=== PATIENT | female | born 1955 | race Caucasian/White ===

== ENCOUNTER 2016-07-03 17:52 | Observation (INO) | payer OTHER ==
[~2016-07-03] VITALS: Ht 157.5 cm; Wt 65.8 kg
[~2016-07-03 17:52] MED LIST: AMLO5TAB2 PO; ASP81TEC PO; ATR20T PO; CTRZ10T PO; HYDR-3876 PO; HYOS0.1217 PO; METO-333 PO; NITR0.3T6 SL; NITR100C44 PO; PHEN200T27 PO; TICA90TA PO; TORADOL
[2016-07-03] MEDS ORDERED: RX-NITROGLYCERIN 0.4 MG TAB BTL 25'S SL PRN (18:00)
[2016-07-03] MEDS ORDERED: ASPIRIN 81 MG CHEW (CHILDREN'S ASA) PO ONE (18:00)
[2016-07-03] MEDS ORDERED: morphine INJ 10 MG/ML 1ML (SYR OR VIAL) IVP STA ×2 (18:07→19:03)
[2016-07-03 18:21] LABS: BASOPHILS % (AUTO) 0 % (0-10); EOSINOPHILS # (AUTO) 0.2 10^3/uL (0.0-0.3); EOSINOPHILS % (AUTO) 2 % (0-10); LYMPHOCYTES # (AUTO) 1.8 X 10^3 (1.0-4.0); LYMPHOCYTES % (AUTO) 13 % (12-44); MEAN CORPUSCULAR HEMOGLOBIN 29 PG (25-34); MEAN CORPUSCULAR HGB CONC 34 G/DL (32-36); MEAN CORPUSCULAR VOLUME 84 FL (80-99); MEAN PLATELET VOLUME 10.8 FL (7.4-10.4); MONOCYTES # (AUTO) 0.6 X 10^3 (0.0-1.0); MONOCYTES % (AUTO) 5 % (0-12); NEUTROPHILS # (AUTO) 10.5 X 10^3 (1.8-7.8); NEUTROPHILS % (AUTO) 80 % (42-75); PLATELET COUNT 268 10^3/uL (130-400); RED CELL DISTRIBUTION WIDTH 14.3 % (10.0-14.5); WHITE BLOOD COUNT 13.1 10^3/uL (4.3-11.0)
[2016-07-03 18:33] LABS: PROTHROMBIN TIME PATIENT 12.5 SEC (12.2-14.7)
--- NOTE | 2016-07-03 18:40 | ED Chest Pain ---
General Stated Complaint: CP Source: patient History of Present Illness Time seen by provider: 17:55 Initial Comments PT ARRIVES VIA POV FROM HOME PT STATES SHE BEGAN HAVING A TYPICAL MIGRAINE AROUND 1230 TODAY--TOOK 2 EXCEDRIN MIGRAINE AND 2 TORADOL AROUND 1430 TODAY AND HEADACHE IS COMPLETELY GONE NOW SHORTLY BEFORE SHE TOOK THE MEDICATIONS, SHE BEGAN HAVING CHEST PAIN AND IT CONTINUES, STARTED IN MID-CHEST AND IS STARTING TO SPREAD ACROSS ENTIRE CHEST RATES PAIN 8/10 + NAUSEA, NO VOMITING + SWEATS SLIGHT SHORTNESS OF BREATH NO SWELLING IN LEGS/ FEET OR PAIN IN [place] HAS HAD A CARDIAC CATH AND 1 STENT/NO [place] BY DR. COLEMAN--STATES THIS PAIN IS THE SAME PAIN SHE WAS HAVING BEFORE HER STENT. PT STATES FOR THE LAST COUPLE OF DAYS SHE HAS HAD "HEART PAIN" A COUPLE OF TIMES , BUT WENT AWAY AFTER A FEW MINUTES, ALSO HAVING SOME "INDIGESTION" WITH EATING STATES SHE USED TO HAVE NTG AT HOME, BUT HAS NOT HAD ANY IN YEARS WAS SEEING DR. MARCUM, AFTER DR. COLEMAN , AND HAD A ? STRESS ECHO? A COUPLE OF YEARS AGO IN [place] SINCE THEN, SHE HAS TRANSFERRED CARE TO DR. BOWENS AT [facility]--HAS ONLY SEEN HIM TWICE PT DID ALOT OF WALKING TODAY--HAS BEEN TO [facility] IN [place] ALL DAY PCP: DR. ALEXIS Allergies and Home Medications Allergies Coded Allergies: Penicillins (Verified Allergy, Unknown, 08/25/06) ciprofloxacin (Verified Allergy, Unknown, 08/25/06) Home Medications Amlodipine Besylate 5 Mg Tablet, 5 MG PO DAILY, (Reported) Atorvastatin 20 Mg Tablet, 20 MG PO HS, (Reported) Hydrocodone/Acetaminophen 1 Each Tablet, 1-2 EACH PO Q4H, #30 Prescribed by: JOSE ACE on 05/14/14 1422 Hyoscyamine Sulfate 0.125 Mg/Tab Tab.rapdis, 1-2 EACH PO Q4HR, #30 Prescribed by: JOSE ACE on 05/14/14 1421 Nitrofurantoin/Nitrofuran Mac 100 Mg Capsule, 100 MG PO BID, #14 Prescribed by: JOSE ACE on 05/14/14 1421 Phenazopyridine Hcl 200 Mg Tablet, 1 EACH PO TID, #21 Prescribed by: JOSE ACE on 05/14/14 1421 Review of Systems Constitutional: see HPI, diaphoresis EENTM: No Symptoms Reported Respiratory: See HPI, Shortness of Air Cardiovascular: See HPI, Chest Pain, Denies Edema, Denies Lightheadedness, Denies Palpitations, Denies Syncope Gastrointestinal: See HPI, Denies Abdominal Pain, Nausea, Denies Vomiting Genitourinary: No Symptoms Reported Musculoskeletal: no symptoms reported Skin: no symptoms reported Psychiatric/Neurological: No Symptoms Reported Endocrine: No Symptoms Reported Hematologic/Lymphatic: No Symptoms Reported Past Urgjcuh-Fukvjm-Yxdynb Hx Patient Social History Alcohol Use: Denies Use Recreational Drug Use: No Smoking Status: Never a Smoker 2nd Hand Smoke Exposure: Yes Recent Foreign Travel: No Contact w/Someone Who Travel: No Surgeries HX Surgeries: Yes ( X 3, KIDNEY STONE BASKET RETRIEVAL X 2; TOE SURGERY X 2; SINUS SURGERY) Surgeries: Cardiac, Section, Coronary Stent, Orthopedic, Renal Respiratory Hx Respiratory Disorders: No Cardiovascular Hx Cardiac Disorders: Yes Cardiac Disorders: Coronary Artery Disease Neurological Hx Neurological Disorders: Yes Neurological Disorders: Headaches /Migraines 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 System Hx 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 Disorders: 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 Genitourinary Hx Genitourinary Disorders: Yes Genitourinary Disorders: Kidney Stones Gastrointestinal Hx Gastrointestinal Disorders: No Musculoskeletal Hx Musculoskeletal Disorders: Yes (TOE SURGERY) Endocrine Hx Endocrine Disorders: No HEENT HX ENT Disorders: Yes (SINUS SURGERY) Cancer Hx Cancer: No Psychosocial Hx Psychiatric Problems: No Integumentary HX Skin/Integumentary Disorder: No Blood Transfusions Hx Blood Disorders: No Physical Exam Vital Signs Vital Sign - Last 12Hours 07/03/16 17:52 Temp 97.3 Pulse 82 Resp 16 B/P (MAP) 162/90 Pulse Ox 98 Capillary Refill : General Appearance: No Apparent Distress, WD/WN, Anxious HEENT: PERRL/EOMI Neck: Full Range of Motion, Normal Inspection, Non Tender, Supple, No Carotid Bruit, No JVD Respiratory: Chest Non Tender, Normal Breath Sounds, No Accessory Muscle Use, No Respiratory Distress Cardiovascular: Regular Rate, Rhythm, No Edema, No Gallop, No JVD, No Murmur, Normal Peripheral Pulses Gastrointestinal: Normal Bowel Sounds, No Organomegaly, No Pulsatile Mass, Non Tender, Soft Extremity: Normal Capillary Refill, Normal Inspection, Normal Range of Motion, Non Tender, No Calf Tenderness, No Pedal Edema Neurologic/Psychiatric: Alert, Oriented x3, No Motor/Sensory Deficits, claims 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 II- XII Norm as Tested Skin: Normal Color, Warm/Dry, No Rash Progress/Results/Core Measures Results/Orders Lab Results Laboratory Tests Test 07/03/16 18:10 Range/Units White Blood Count 13.1 H 4.3-11.0 10^3/uL Red Blood Count 5.20 4.35-5.85 10^6/uL Hemoglobin 14.8 11.5-16.0 G/DL Hematocrit 44 35-52 % Mean Corpuscular Volume 84 80-99 FL Mean Corpuscular Hemoglobin 29 25-34 PG Mean Corpuscular Hemoglobin Concent 34 32-36 G/DL Red Cell Distribution Width 14.3 10.0-14.5 % Platelet Count 268 130-400 10^3/uL Mean Platelet Volume 10.8 H 7.4-10.4 FL Neutrophils (%) (Auto) 80 H 42-75 % Lymphocytes (%) (Auto) 13 12-44 % Monocytes (%) (Auto) 5 0-12 % Eosinophils (%) (Auto) 2 0-10 % Basophils (%) (Auto) 0 0-10 % Neutrophils # (Auto) 10.5 H 1.8-7.8 X 10^3 Lymphocytes # (Auto) 1.8 1.0-4.0 X 10^3 Monocytes # (Auto) 0.6 0.0-1.0 X 10^3 Eosinophils # (Auto) 0.2 0.0-0.3 10^3/uL Basophils # (Auto) 0.0 0.0-0.1 10^3/uL Prothrombin Time 12.5 12.2-14.7 SEC INR Comment 1.0 0.8-1.4 Activated Partial Thromboplast Time 24 24-35 SEC Sodium Level 137 135-145 MMOL/L Potassium Level 4.0 3.6-5.0 MMOL/L Chloride Level 101 98-107 MMOL/L Carbon Dioxide Level 21 21-32 MMOL/L Anion Gap 15 H 5-14 MMOL/L Blood Urea Nitrogen 13 7-18 MG/DL Creatinine 0.78 0.60-1.30 MG/DL Estimat Glomerular Filtration Rate > 60 BUN/Creatinine Ratio 17 Glucose Level 160 H 70-105 MG/DL Calcium Level 9.6 8.5-10.1 MG/DL Magnesium Level 2.2 1.8-2.4 MG/DL Total Bilirubin 0.4 0.1-1.0 MG/DL Aspartate Amino Transf (AST/SGOT) 31 5-34 U/L Alanine Aminotransferase (ALT/SGPT) 24 0-55 U/L Alkaline Phosphatase 70 40-136 U/L Total Creatine Kinase 112 29-168 U/L Creatine Kinase MB 1.5 <6.6 NG/ML Troponin I < 0.30 <0.30 NG/ML B-Type Natriuretic Peptide 39.4 <100.0 PG/ML Total Protein 7.8 6.4-8.2 G/DL Albumin 4.4 3.2-4.5 G/DL Amylase Level 74 25-125 U/L Lipase 49 8-78 U/L My Orders Orders - SHREYA RODRIGUEZ DO Amylase (07/03/16 17:56) Cbc With Automated Diff (07/03/16 17:56) Comprehensive Metabolic Panel (07/03/16 17:56) Creatine Kinase (07/03/16 17:56) Creatine Kinase Mb (07/03/16 17:56) Lipase (07/03/16 17:56) Partial Thromboplastin Time (07/03/16 17:56) Protime With Inr (07/03/16 17:56) Troponin I (07/03/16 17:56) Chest 1 View, Ap/Pa Only (07/03/16 17:56) O2 (07/03/16 17:56) Ekg Tracing (07/03/16 17:56) Aspirin Chewable Tablet (Baby Aspirin Ch (07/03/16 18:00) Rx-Nitroglycerin Sl Tabs (Rx-Nitrostat S (07/03/16 18:00) BNP (07/03/16 17:56) Monitor-Rhythm Ecg Trace Only (07/03/16 17:56) Magnesium (07/03/16 17:56) Morphine Injection (Morphine Injection (07/03/16 18:07) Pantoprazole Injection (Protonix Injecti (07/03/16 18:45) Morphine Injection (Morphine Injection (07/03/16 19:03) Enoxaparin Injection (Lovenox Injection) (07/03/16 19:15) Metoprolol Tartrate (Ir) Tab (Lopressor (07/03/16 19:15) Medications Given in ED Current Medications Medications Dose Ordered Sig/Laurel Route Start Time Stop Time Status Last Admin Dose Admin Aspirin 324 mg ONCE ONCE PO 07/03/16 18:00 07/03/16 18:01 DC 07/03/16 18:32 324 MG Vital Signs/I&O Vital Sign - Last 12Hours 07/03/16 17:52 Temp 97.3 Pulse 82 Resp 16 B/P (MAP) 162/90 Pulse Ox 98 Progress Note : Progress Note NTG HELD DUE TO RECENT MIGRAINE GIVEN MORPHINE WITH COMPLETE RESOLUTION OF PAIN UNEVENTFUL ER STAY ECG Initial ECG Impression Time: 17:59 Initial ECG Rate: 89 Initial ECG Rhythm: Normal Sinus Initial ECG Impression: Normal Initial ECG Comparisson: Unchanged Diagnostic Imaging Comments CXR--NO ACUTE PROCESS, PER RADIOLOGIST REPORT @ 1845 Departure Communication Progress Notes 1903--SPOKE WITH DR. Isaiah HESS, FIELD SERVICE ANALYST FOR DR. ALEXIS. ACCEPTS PT FOR ADMIT 1904--SPOKE WITH DR. COLMENARES FOR CARDIOLOGY CONSULT. ORDERS NOTED. Impression Impression: Primary Impression: Chest pain Additional Impression: HX OF CAD WITH STENT Disposition: ADMITTED INPATIENT Condition: Improved Decision to Admit Reason: Admit from ER (General) Decision to Admit/Date: Jul 03, 2016 Time/Decision to Admit Time: 19:05 Departure-Patient Inst. Referrals: ELLI ALEXIS DO (PCP/Family) Primary Care Physician SHREYA RODRIGUEZ DO Jul 03, 2016 18:40
--- NOTE | 2016-07-03 18:43 | Diagnostic Imaging Report ---
INDICATION: Chest pain. EXAMINATION: Portable chest at 6:24 p.m. FINDINGS: Heart size and pulmonary vascularity are normal. Lungs are clear. There are no effusions or pneumothoraces. IMPRESSION: Negative chest. Dictated by: Dictated on workstation # [id number]
[2016-07-03 18:45] LABS: ALANINE AMINOTRANSFERASE 24 U/L (0-55); ALBUMIN 4.4 G/DL (3.2-4.5); AMYLASE 74 U/L (25-125); ANION GAP 15 MMOL/L (5-14); ASPARTATE AMINO TRANSFERASE 31 U/L (5-34); BILIRUBIN,TOTAL 0.4 MG/DL (0.1-1.0); BLOOD UREA NITROGEN 13 MG/DL (7-18); BUN/CREATININE RATIO 17; CALCIUM 9.6 MG/DL (8.5-10.1); CARBON DIOXIDE 21 MMOL/L (21-32); CHLORIDE 101 MMOL/L (98-107); CREATINE KINASE 112 U/L (29-168); CREATININE SERUM 0.78 MG/DL (0.60-1.30); GFR ESTIMATED > 60; GLUCOSE 160 MG/DL (70-105); LIPASE 49 U/L (8-78); MAGNESIUM 2.2 MG/DL (1.8-2.4); SODIUM 137 MMOL/L (135-145); TOTAL PROTEIN 7.8 G/DL (6.4-8.2)
[2016-07-03] MEDS ORDERED: PANTOPRAZOLE 40 MG/10 ML (PROTONIX) VIAL IV ONE (18:45)
[2016-07-03 18:52] LABS: TROPONIN I < 0.30 NG/ML (<0.30)
[2016-07-03] MEDS ORDERED: ENOXAPARIN 80 MG/0.8 ML (LOVENOX) SYR SC ONE (19:15)
[2016-07-03] MEDS ORDERED: meTOprolol TARTRATE 25 MG (LOPRESSOR) TABLET PO ONE (19:15)
[2016-07-03] MEDS ORDERED: NITROGLYCERIN SUBLINGUAL 0.4 MG TAB (NITROSTAT) SL PRN (22:00)
[2016-07-03] MEDS ORDERED: morphine INJ 4 MG/ML 1 ML (VIAL/SYRINGE) IV PRN (22:15)
[2016-07-04 03:47] LABS: BASOPHILS % (AUTO) 0 % (0-10); EOSINOPHILS # (AUTO) 0.1 10^3/uL (0.0-0.3); EOSINOPHILS % (AUTO) 1 % (0-10); LYMPHOCYTES # (AUTO) 1.8 X 10^3 (1.0-4.0); LYMPHOCYTES % (AUTO) 21 % (12-44); MEAN CORPUSCULAR HEMOGLOBIN 29 PG (25-34); MEAN CORPUSCULAR HGB CONC 34 G/DL (32-36); MEAN CORPUSCULAR VOLUME 84 FL (80-99); MEAN PLATELET VOLUME 11.1 FL (7.4-10.4); MONOCYTES # (AUTO) 0.6 X 10^3 (0.0-1.0); MONOCYTES % (AUTO) 7 % (0-12); NEUTROPHILS # (AUTO) 6.2 X 10^3 (1.8-7.8); NEUTROPHILS % (AUTO) 71 % (42-75); PLATELET COUNT 254 10^3/uL (130-400); RED BLOOD COUNT 4.66 10^6/uL (4.35-5.85); RED CELL DISTRIBUTION WIDTH 14.1 % (10.0-14.5); WHITE BLOOD COUNT 8.7 10^3/uL (4.3-11.0)
[2016-07-04 04:00] VITALS: BP 133/75
[2016-07-04 04:13] LABS: ALANINE AMINOTRANSFERASE 17 U/L (0-55); ALBUMIN 3.6 G/DL (3.2-4.5); ANION GAP 11 MMOL/L (5-14); ASPARTATE AMINO TRANSFERASE 22 U/L (5-34); BILIRUBIN,TOTAL 0.4 MG/DL (0.1-1.0); BLOOD UREA NITROGEN 9 MG/DL (7-18); BUN/CREATININE RATIO 15; CALCIUM 8.5 MG/DL (8.5-10.1); CARBON DIOXIDE 21 MMOL/L (21-32); CHLORIDE 106 MMOL/L (98-107); CHOLESTEROL 191 MG/DL (< 200); CREATININE SERUM 0.61 MG/DL (0.60-1.30); DIRECT LDL 149 MG/DL (1-129); GFR ESTIMATED > 60; GLUCOSE 114 MG/DL (70-105); POTASSIUM 3.4 MMOL/L (3.6-5.0); SODIUM 138 MMOL/L (135-145); TOTAL PROTEIN 6.3 G/DL (6.4-8.2); TRIGLYCERIDES 76 MG/DL (<150); VLDL CHOLESTEROL 15 MG/DL (5-40)
[2016-07-04 04:24] LABS: MYOGLOBIN SERUM 30.2 NG/ML (10.0-92.0)
[2016-07-04] MEDS ORDERED: ENOXAPARIN 80 MG/0.8 ML (LOVENOX) SYR SC SCH (07:00)
[2016-07-04] MEDS ORDERED: ASPIRIN E.C. 325 MG (ECOTRIN) TABLET PO SCH (09:00)
[2016-07-04] MEDS ORDERED: meTOprolol TARTRATE 25 MG (LOPRESSOR) TABLET PO SCH (09:00)
--- NOTE | 2016-07-04 10:20 | Consultation-Cardiology ---
HPI-Cardiology Cardiology Consultation Date of Consultation 07/04/16 Date of Admission Indication: chest pain HPI 60 years old lady with history of hypertension, coronary artery disease, had a stent in the remote past, started having chest pain yesterday described as dull in nature associated with diaphoresis. Came into the emergency room was not given nitroglycerin due to the underlying migraine headache. She was given morphine with improvement in her chest pain, no further episodes were reported. Currently chest pain-free. Denied any palpitation, syncope or near syncopal episodes, reporting occasional twinges in her chest. EKG did not show any acute changes. Home Medications & Allergies Allergies: Coded Allergies: Penicillins (Verified Allergy, Unknown, 08/25/06) ciprofloxacin (Verified Allergy, Unknown, 08/25/06) Home Medication List Reviewed: Yes POF-Qucnoi-Jnurpt Hx Patient Social History Marital Status: Alcohol Use: Denies Use Recreational Drug Use: No Smoking Status: Never a Smoker 2nd Hand Smoke Exposure: Yes Recent Foreign Travel: No Recent Infectious Disease Expo: No Recent Hopitalizations: No Physical Abuse Screen: No Sexual Abuse: No Past Medical History past medical history as discussed below Family Medical History Family Medical Hx noncontributory Constitutional: see HPI, No chills, diaphoresis, No dizziness, No fever, No malaise, weakness, No weight gain, No weight loss, No other EENTM: no symptoms reported, see HPI Respiratory: no symptoms reported, see HPI Cardiovascular: see HPI, chest pain, No edema, No Hx of Intervention, No palpitations, No syncope, No vascular heart diseas, No other Gastrointestinal: no symptoms reported, see HPI Genitourinary: no symptoms reported, see HPI Musculoskeletal: no symptoms reported, see HPI Skin: no symptoms reported, see HPI Psychiatric/Neurological: No Symptoms Reported, See HPI Reviewed Test Results Reviewed Test Results Lab Laboratory Tests Test 07/03/16 18:10 07/04/16 00:20 07/04/16 03:18 Range/Units White Blood Count 13.1 H 8.7 4.3-11.0 10^3/uL Red Blood Count 5.20 4.66 4.35-5.85 10^6/uL Hemoglobin 14.8 13.3 11.5-16.0 G/DL Hematocrit 44 39 35-52 % Mean Corpuscular Volume 84 84 80-99 FL Mean Corpuscular Hemoglobin 29 29 25-34 PG Mean Corpuscular Hemoglobin Concent 34 34 32-36 G/DL Red Cell Distribution Width 14.3 14.1 10.0-14.5 % Platelet Count 268 254 130-400 10^3/uL Mean Platelet Volume 10.8 H 11.1 H 7.4-10.4 FL Neutrophils (%) (Auto) 80 H 71 42-75 % Lymphocytes (%) (Auto) 13 21 12-44 % Monocytes (%) (Auto) 5 7 0-12 % Eosinophils (%) (Auto) 2 1 0-10 % Basophils (%) (Auto) 0 0 0-10 % Neutrophils # (Auto) 10.5 H 6.2 1.8-7.8 X 10^3 Lymphocytes # (Auto) 1.8 1.8 1.0-4.0 X 10^3 Monocytes # (Auto) 0.6 0.6 0.0-1.0 X 10^3 Eosinophils # (Auto) 0.2 0.1 0.0-0.3 10^3/uL Basophils # (Auto) 0.0 0.0 0.0-0.1 10^3/uL Prothrombin Time 12.5 12.2-14.7 SEC INR Comment 1.0 0.8-1.4 Activated Partial Thromboplast Time 24 24-35 SEC Sodium Level 137 138 135-145 MMOL/L Potassium Level 4.0 3.4 L 3.6-5.0 MMOL/L Chloride Level 101 106 98-107 MMOL/L Carbon Dioxide Level 21 21 21-32 MMOL/L Anion Gap 15 H 11 5-14 MMOL/L Blood Urea Nitrogen 13 9 7-18 MG/DL Creatinine 0.78 0.61 0.60-1.30 MG/DL Estimat Glomerular Filtration Rate > 60 > 60 BUN/Creatinine Ratio 17 15 Glucose Level 160 H 114 H 70-105 MG/DL Calcium Level 9.6 8.5 8.5-10.1 MG/DL Magnesium Level 2.2 1.8-2.4 MG/DL Total Bilirubin 0.4 0.4 0.1-1.0 MG/DL Aspartate Amino Transf (AST/SGOT) 31 22 5-34 U/L Alanine Aminotransferase (ALT/SGPT) 24 17 0-55 U/L Alkaline Phosphatase 70 61 40-136 U/L Total Creatine Kinase 112 29-168 U/L Creatine Kinase MB 1.5 <6.6 NG/ML Troponin I < 0.30 < 0.30 <0.30 NG/ML B-Type Natriuretic Peptide 39.4 <100.0 PG/ML Total Protein 7.8 6.3 L 6.4-8.2 G/DL Albumin 4.4 3.6 3.2-4.5 G/DL Amylase Level 74 25-125 U/L Lipase 49 8-78 U/L Myoglobin 30.2 10.0-92.0 NG/ML Triglycerides Level 76 <150 MG/DL Cholesterol Level 191 < 200 MG/DL LDL Cholesterol Direct 149 H 1-129 MG/DL VLDL Cholesterol 15 5-40 MG/DL HDL Cholesterol 33 L 40-60 MG/DL Physical Exam Vital Signs Vital Sign - Last 12Hours 07/03/16 07/03/16 17:52 18:00 Temp 97.3 Pulse 82 Resp 16 B/P (MAP) 162/90 Pulse Ox 98 O2 Delivery Room Air Capillary Refill : Less Than 3 Seconds General Appearance: No Apparent Distress, WD/WN, Mild Distress Eyes: Bilateral Eye EOMI, Bilateral Eye Normal Inspection, Bilateral Eye PERRL HEENT: PERRL/EOMI, TMs Normal, Normal ENT Inspection, Pharynx Normal Neck: Full Range of Motion, Normal Inspection, Non Tender, Supple, Carotid Bruit Respiratory: Chest Non Tender, Lungs Clear, Normal Breath Sounds, No Accessory Muscle Use, No Respiratory Distress Cardiovascular: Regular Rate, Rhythm, No Edema, No Gallop, No JVD, No Murmur, Normal Peripheral Pulses Gastrointestinal: Normal Bowel Sounds, No Organomegaly, No Pulsatile Mass, Non Tender, Soft Back: Normal Inspection, No CVA Tenderness, No Vertebral Tenderness Extremity: Normal Capillary Refill, Normal Inspection, Normal Range of Motion, Non Tender, No Calf Tenderness, No Pedal Edema Neurologic/Psychiatric: Alert, Oriented x3, No Motor/Sensory Deficits, Normal Mood/Affect Skin: Normal Color, Warm/Dry Lymphatic: No Adenopathy A/P-Cardiology Admission Diagnosis Chest pain nonspecific etiology Coronary artery disease Migraine headaches Hyperlipidemia Assessment/Plan Chest pain nonspecific etiology, atypical in presentation, improved after morphine, EKG and cardiac exams were negative. Patient had history of coronary artery disease, discussed with her the management plan recommended stress test to be done as an outpatient, patient agreed on the plan. She will contact me if she had any further episode of chest pain. Coronary artery disease, history of stent using 2.2520 mm stent to the proximal LAD [place] [address] Prather, has been following with Dr. Cantrell then Dr. Hutton. Hyperlipidemia, unable to tolerate high-dose of statin. Managed by her primary siebel administrator, recommended using lower dose of statin. Migraine headache. Clinical Quality Measures AMI/AHF: ASA po Prior to arrival: No DVT/VTE Risk/Contraindication: Risk Factor Score Per Nursin RFS Level Per Nursing on Admit: 2=Moderate SHAGGY COLMENARES MD Jul 04, 2016 10:20
[2016-07-04] MEDS ORDERED: ASPI-983 PO ×2 (10:21)
--- NOTE | 2016-07-04 10:23 | Clinic Account Progress/Dx ---
Clinic Account Progress/Dx DIAGNOSIS: Diagnosis Chest pain nonspecific etiology Coronary artery disease Hyperlipidemia Migraine headache SHAGGY COLMENARES MD Jul 04, 2016 10:23
--- NOTE | 2016-07-04 10:50 | History & Physical ---
History of Present Illness History of Present Illness Reason for visit/HPI 60 yo F with history of CAD, HLD, migraine headaches admitted for observation for chest pain. She reports she went to a local town[place] city[place] garage [place] and noted on the way down there a vague chest pain. Patient also notes she was developing a headache. Her friend had Excedrin Migraine so she took it for the first time she has ever taken. She also stopped the gas station and got some pretzels and tea for her headache. She did do a lot of ambulating while garage sale shopping. Patient also took Toradol when she got home to also help with her headache. Ultimately the patient presented to the ER for the chest pain knowing that she has a history of having a stent. While at the ER notes her headache had resolved the chest pain continued. After she was given morphine IV though her chest pain resolved. No radiation of her chest pain. Her chest pain was not affected by walking talking or breathing. Denies any diaphoresis or vomiting did feel a little nauseated but attributed that to her headache. Decision was made to admit patient overnight for observation and trend troponins. No overnight events EKGs did not demonstrate any concern and troponins remained less than 0.3. Dr. Bajwa saw patient this morning and agreed with discharging to home with an outpatient stress test scheduled. Also recommendation to use a low-dose statin as patient has not tolerated diet dose statin in the past. Patient and agreeable to being discharged today. Date of Admission Jul 03, 2016 at 19:29 I consulted on this patient on 07/04/16 10:40 Attending Physician Dmitri Hess MD Admitting Physician Virginia Esparza DO Consult Dr. Plasencia Cardiology Allergies and Home Medications Allergies Coded Allergies: Penicillins (Verified Allergy, Unknown, 08/25/06) ciprofloxacin (Verified Allergy, Unknown, 08/25/06) Home Medications Aspirin 81 Mg Tablet., 81 MG PO DAILY, #100 Ref 2 Prescribed by: SHAGGY PLASENCIA on 07/04/16 1021 Hyoscyamine Sulfate 0.125 Mg/Tab Tab.rapdis, 1-2 EACH PO Q4HR, #30 Prescribed by: JOSE ACE on 05/14/14 1421 Past Bewfxen-Tlzpwe-Ytekim Hx Patient Social History Marrital Status: Alcohol Use: Denies Use Recreational Drug Use: No Smoking Status: Never a Smoker 2nd Hand Smoke Exposure: Yes Physical Abuse Screen: No Sexual Abuse: No Recent Foreign Travel: No Contact w/other who traveled: No Recent Hopitalizations: No Recent Infectious Disease Expo: No Seasonal Allergies Seasonal Allergies: No Surgeries HX Surgeries: Yes ( X 3, KIDNEY STONE BASKET RETRIEVAL X 2; TOE SURGERY X 2; SINUS SURGERY) Surgeries: Cardiac, Section, Coronary Stent, Orthopedic, Renal Respiratory Hx Respiratory Disorders: No Cardiovascular Hx Cardiovascular Disorders: Yes Cardiac Disorders: Coronary Artery Disease Neurological Hx Neurological Disorders: Yes Neurological Disorders: Headaches /Migraines 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 System Hx 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 Disorders: No Genitourinary Hx Genitourinary Disorders: Yes Genitourinary Disorders: Kidney Stones Gastrointestinal Hx Gastrointestinal Disorders: No Musculoskeletal Hx Musculoskeletal Disorders: Yes (TOE SURGERY) Musculoskeletal Disorders: Arthritis Endocrine Hx Endocrine Disorders: No HEENT HX ENT Disorders: Yes (SINUS SURGERY) Cancer Hx Cancer: No Psychosocial Hx Psychiatric Problems: No Integumentary HX Skin/Integumentary Disorder: No Blood Transfusions Hx Blood Disorders: No Review of Systems Review of Systems General: No Chills, No Night Sweats HEENT: Head Aches (resolved) Pulmonary: No Dyspnea, No Cough Cardiovascular: Chest Pain (resolved), No: Orthopnea, Palpitations Gastrointestinal: No: Abdominal Pain, Nausea, Vomiting Genitourinary: No Dysuria Musculoskeletal: No: neck pain Neurological: No: Numbness, Weakness Physical Exam Vital Signs Vital Sign - Last 12Hours 07/03/16 07/03/16 17:52 18:00 Temp 97.3 Pulse 82 Resp 16 B/P (MAP) 162/90 Pulse Ox 98 O2 Delivery Room Air Capillary Refill : Less Than 3 Seconds General Appearance: No Apparent Distress, WD/WN HEENT: PERRL/EOMI Respiratory: Chest Non Tender, Lungs Clear, Normal Breath Sounds, No Accessory Muscle Use, No Respiratory Distress Cardiovascular: Regular Rate, Rhythm, No Edema Gastrointestinal: Non Tender, Soft Rectal: Deferred Extremity: Non Tender Neurologic/Psychiatric: Alert, Oriented x3 Skin: Warm/Dry Assessment/Plan Assessment/Plan Assessment/Plan 60 yo F Chest pain nonspecific etiology, atypical- RESOLVED ekg no STEMI, troponin < 0.30 - Dr. Plasencia consulted- outpt stress test to be done. Coronary artery disease- [address] Prather Hyperlipidemia- statin Migraine headache- continue home regimen Dispo: d/c to home. Healthy diet and exercise. Have the outpatient stress test done. Problems: Clinical Quality Measures AMI/AHF: ASA po Prior to arrival: No DVT/VTE Risk/Contraindication: Risk Factor Score Per Nursin RFS Level Per Nursing on Admit: 2=Moderate DMITRI HESS MD Jul 04, 2016 10:49
[2016-07-04 11:14] VITALS: BP 133/75
--- OUTSIDE RECORDS SUMMARY | 2016-08-09 04:07 | XMS REPORT | Continuity of Care Document ---
Author Author [facility] Organization [facility] Address Unknown Phone Unavailable Allergies Active Description Code Type Severity Reaction Onset Reported/Identified Relationship to Patient Clinical Status Yes ciprofloxacin [id number] Drug Allergy Unknown N/A 08/25/2006 Yes Penicillins [id number] Drug Allergy Unknown N/A 08/25/2006 Medications Problems Date Dx Coded Attending Type Code Diagnosis Diagnosed By 05/14/2014 ANAND WALLACE, SUNDAR Crooks Ot 414.01 05/14/2014 ANAND WALLACE, SUNDAR Crooks Ot 592.1 05/14/2014 ANAND WALLACE, SUNDAR Crooks Ot V45.82 05/14/2014 ANAND WALLACE, SUNDAR Crooks Ot 414.01 05/14/2014 ANAND WALLACE, SUNDAR Crooks Ot 592.1 05/14/2014 ANAND WALLCAE, SUNDAR Crooks Ot 618.4 05/14/2014 ANAND WALLACE, SUNDAR Crooks Ot V45.82 05/23/2014 CHRIS WALLACE, CRUZ Guevara Ot 592.9 06/18/2014 CHRIS WALLACE, CRUZ A Ot 592.9 07/20/2014 CHRIS WALLACE, CRUZ A Ot 592.9 08/20/2014 CHRIS WALLACE, CRUZ Guevara Ot 592.9 URINARY CALCULUS NOS 09/05/2015 ELLI ALEXIS DO S Ot Z12.31 ENCNTR SCREEN MAMMOGRAM FOR MALIGNANT NE 09/21/2015 FRANCHESKA ALEXIS DOLINE S Ot Z12.31 ENCNTR SCREEN MAMMOGRAM FOR MALIGNANT NE 07/04/2016 FRANCHESKA ALEXIS DOLINE S Ot E78.5 HYPERLIPIDEMIA, UNSPECIFIED 07/04/2016 FRANCHESKA ALEXIS DOLINE S Ot G43.909 MIGRAINE, UNSP, NOT INTRACTABLE, WITHOUT 07/04/2016 FRANCHESKA ALEXIS DOLINE S Ot I10 ESSENTIAL (PRIMARY) HYPERTENSION 07/04/2016 FRANCHESKA ALEXIS DOLINE S Ot I25.10 ATHSCL HEART DISEASE OF [place] CORONARY 07/04/2016 ELLI ALEXIS DO Ot R07.89 OTHER CHEST PAIN 07/04/2016 ELLI ALEXIS DO Ot Z95.5 PRESENCE OF CORONARY ANGIOPLASTY IMPLANT 07/06/2016 CRUZ PEREZ MD Ot 592.9 URINARY CALCULUS NOS 07/06/2016 ELLI ALEXIS DO Ot Z12.31 ENCNTR SCREEN MAMMOGRAM FOR MALIGNANT NE 07/06/2016 SHAGGY COLMENARES MD Ot I25.10 ATHSCL HEART DISEASE OF [place] CORONARY 07/06/2016 SHAGGY COLMENARES MD Ot R07.89 OTHER CHEST PAIN 07/06/2016 SHAGGY COLMENARES MD Ot I25.10 ATHSCL HEART DISEASE OF [place] CORONARY 07/06/2016 SHAGGY COLMENARES MD Ot R07.89 OTHER CHEST PAIN 07/08/2016 SHAGGY COLMENARES MD Ot I25.10 ATHSCL HEART DISEASE OF [place] CORONARY 07/08/2016 SHAGGY COLMENARES MD Ot R07.89 OTHER CHEST PAIN 07/24/2016 SHAGGY COLMENARES MD Ot I25.10 ATHSCL HEART DISEASE OF [place] CORONARY 07/24/2016 SHAGGY COLMENARES MD Ot R07.89 OTHER CHEST PAIN Procedures Results Test Result Range Complete blood count (CBC) with automated white blood cell (WBC) differential - 07/03/16 18:10 Blood leukocytes automated count (number/volume) 13.1 10*3/ uL 4.3-11.0 Blood erythrocytes automated count (number/volume) 5.20 10*6 /uL 4.35-5.85 Venous blood hemoglobin measurement (mass/volume) 14.8 g/dL 11.5-16.0 Blood hematocrit (volume fraction) 44 % 35-52 Automated erythrocyte mean corpuscular volume 84 [foz_us] 80-99 Automated erythrocyte mean corpuscular hemoglobin (mass per erythrocyte) 29 pg 25-34 Automated erythrocyte mean corpuscular hemoglobin concentration measurement ( mass/volume) 34 g/dL 32-36 Automated erythrocyte distribution width ratio 14.3 % 10.0-14.5 Automated blood platelet count (count/volume) 268 10*3/uL 130-400 Automated blood platelet mean volume measurement 10.8 [foz_ us] 7.4-10.4 Automated blood neutrophils/100 leukocytes 80 % 42-75 Automated blood lymphocytes/100 leukocytes 13 % 12-44 Blood monocytes/100 leukocytes 5 % 0-12 Automated blood eosinophils/100 leukocytes 2 % 0-10 Automated blood basophils/100 leukocytes 0 % 0-10 Blood neutrophils automated count (number/volume) 10.5 10*3 1.8-7.8 Blood lymphocytes automated count (number/volume) 1.8 10*3 1.0-4.0 Blood monocytes automated count (number/volume) 0.6 10*3 0.0-1.0 Automated eosinophil count 0.2 10*3/uL 0.0-0.3 Automated blood basophil count (count/volume) 0.0 10*3/uL 0.0-0.1 PT panel in platelet poor plasma by coagulation assay - 07/03/16 18:10 Prothrombin time (PT) in platelet poor plasma by coagulation assay 12.5 s 12.2-14.7 INR in platelet poor plasma or blood by coagulation assay 1.0 0.8-1.4 Activated partial thromboplastin time (aPTT) in platelet poor plasma bycoagulation assay - 07/03/16 18:10 Activated partial thromboplastin time (aPTT) in platelet poor plasma bycoagulation assay 24 s 24-35 Comprehensive metabolic panel - 07/03/16 18:10 Serum or plasma sodium measurement (moles/volume) 137 mmol/ L 135-145 Serum or plasma potassium measurement (moles/volume) 4.0 mmol/L 3.6-5.0 Serum or plasma chloride measurement (moles/volume) 101 mmol /L 98-107 Carbon dioxide 21 mmol/L 21-32 Serum or plasma anion gap determination (moles/volume) 15 mmol/L 5-14 Serum or plasma urea nitrogen measurement (mass/volume) 13 mg/dL 7-18 Serum or plasma creatinine measurement (mass/volume) 0.78 mg /dL 0.60-1.30 Serum or plasma urea nitrogen/creatinine mass ratio 17 NRG Serum or plasma creatinine measurement with calculation of estimated glomerular filtration rate > NRG Serum or plasma glucose measurement (mass/volume) 160 mg/dL 70-105 Serum or plasma calcium measurement (mass/volume) 9.6 mg/dL 8.5-10.1 Serum or plasma total bilirubin measurement (mass/volume) 0.4 mg/dL 0.1-1.0 Serum or plasma alkaline phosphatase measurement (enzymatic activity/volume) 70 U/L 40-136 Serum or plasma aspartate aminotransferase measurement (enzymatic activity/ volume) 31 U/L 5-34 Serum or plasma alanine aminotransferase measurement (enzymatic activity/volume ) 24 U/L 0-55 Serum or plasma protein measurement (mass/volume) 7.8 g/dL 6.4-8.2 Serum or plasma albumin measurement (mass/volume) 4.4 g/dL 3.2-4.5 Magnesium - 07/03/16 18:10 Magnesium 2.2 mg/dL 1.8-2.4 Serum or plasma creatine kinase measurement (enzymatic activity/volume) - 07/03 18:10 Serum or plasma creatine kinase measurement (enzymatic activity/volume) 112 U/L 29-168 Serum or plasma creatine kinase MB measurement (enzymatic activity/volume) - 18:10 Serum or plasma creatine kinase MB measurement (enzymatic activity/volume) 1.5 ng/mL <6.6 Serum or plasma troponin i.cardiac measurement (mass/volume) - 07/03/16 18:10 Serum or plasma troponin i.cardiac measurement (mass/volume) < ng/mL <0.30 Serum or plasma amylase measurement (enzymatic activity/volume) - 07/03/16 18: 10 Serum or plasma amylase measurement (enzymatic activity/volume) 74 U/L 25-125 Lipase - 07/03/16 18:10 Lipase 49 U/L 8-78 Serum or plasma lithium measurement (moles/volume) - 07/03/16 18:10 BNP level 39.4 pg/mL <100.0 Serum or plasma troponin i.cardiac measurement (mass/volume) - 07/04/16 00:20 Serum or plasma troponin i.cardiac measurement (mass/volume) < ng/mL <0.30 Complete blood count (CBC) with automated white blood cell (WBC) differential - 07/04/16 03:18 Blood leukocytes automated count (number/volume) 8.7 10*3/ uL 4.3-11.0 Blood erythrocytes automated count (number/volume) 4.66 10*6 /uL 4.35-5.85 Venous blood hemoglobin measurement (mass/volume) 13.3 g/dL 11.5-16.0 Blood hematocrit (volume fraction) 39 % 35-52 Automated erythrocyte mean corpuscular volume 84 [foz_us] 80-99 Automated erythrocyte mean corpuscular hemoglobin (mass per erythrocyte) 29 pg 25-34 Automated erythrocyte mean corpuscular hemoglobin concentration measurement ( mass/volume) 34 g/dL 32-36 Automated erythrocyte distribution width ratio 14.1 % 10.0-14.5 Automated blood platelet count (count/volume) 254 10*3/uL 130-400 Automated blood platelet mean volume measurement 11.1 [foz_ us] 7.4-10.4 Automated blood neutrophils/100 leukocytes 71 % 42-75 Automated blood lymphocytes/100 leukocytes 21 % 12-44 Blood monocytes/100 leukocytes 7 % 0-12 Automated blood eosinophils/100 leukocytes 1 % 0-10 Automated blood basophils/100 leukocytes 0 % 0-10 Blood neutrophils automated count (number/volume) 6.2 10*3 1.8-7.8 Blood lymphocytes automated count (number/volume) 1.8 10*3 1.0-4.0 Blood monocytes automated count (number/volume) 0.6 10*3 0.0-1.0 Automated eosinophil count 0.1 10*3/uL 0.0-0.3 Automated blood basophil count (count/volume) 0.0 10*3/uL 0.0-0.1 Comprehensive metabolic panel - 07/04/16 03:18 Serum or plasma sodium measurement (moles/volume) 138 mmol/ L 135-145 Serum or plasma potassium measurement (moles/volume) 3.4 mmol/L 3.6-5.0 Serum or plasma chloride measurement (moles/volume) 106 mmol /L 98-107 Carbon dioxide 21 mmol/L 21-32 Serum or plasma anion gap determination (moles/volume) 11 mmol/L 5-14 Serum or plasma urea nitrogen measurement (mass/volume) 9 mg /dL 7-18 Serum or plasma creatinine measurement (mass/volume) 0.61 mg /dL 0.60-1.30 Serum or plasma urea nitrogen/creatinine mass ratio 15 NRG Serum or plasma creatinine measurement with calculation of estimated glomerular filtration rate > NRG Serum or plasma glucose measurement (mass/volume) 114 mg/dL 70-105 Serum or plasma calcium measurement (mass/volume) 8.5 mg/dL 8.5-10.1 Serum or plasma total bilirubin measurement (mass/volume) 0.4 mg/dL 0.1-1.0 Serum or plasma alkaline phosphatase measurement (enzymatic activity/volume) 61 U/L 40-136 Serum or plasma aspartate aminotransferase measurement (enzymatic activity/ volume) 22 U/L 5-34 Serum or plasma alanine aminotransferase measurement (enzymatic activity/volume ) 17 U/L 0-55 Serum or plasma protein measurement (mass/volume) 6.3 g/dL 6.4-8.2 Serum or plasma albumin measurement (mass/volume) 3.6 g/dL 3.2-4.5 Myoglobin, serum - 07/04/16 03:18 Myoglobin, serum 30.2 ng/mL 10.0-92.0 Lipid 1996 panel - 07/04/16 03:18 Serum or plasma triglyceride measurement (mass/volume) 76 mg /dL <150 Serum or plasma cholesterol measurement (mass/volume) 191 mg /dL < 200 Serum or plasma cholesterol in HDL measurement (mass/volume) 33 mg/dL 40-60 Cholesterol in LDL [mass/volume] in serum or plasma by direct assay 149 mg/dL 1-129 Serum or plasma cholesterol in VLDL measurement (mass/volume) 15 mg/dL 5-40 Encounters ACCT No. Visit Date/Time Discharge Status Pt. Type Provider Facility Loc./Unit Complaint [id number] 07/03/2016 19:29:00 2016 11:22:00 DIS Inpatient ELLI ALEXIS DO [facility] ICU CHEST PAIN [id number] 08/21/2014 00:11:00 2014 23:59:59 CLS Preadmit CRUZ PEREZ MD [facility] LAB STONES [id number] 05/22/2014 16:27:00 2014 00:01:00 DIS Outpatient CRUZ PEREZ MD [facility] LAB STONES [id number] 05/13/2014 16:50:00 2014 14:55:00 DIS Inpatient SUNDAR MICHEL MD [facility] SURGICAL [id number] 07/06/2016 08:19:00 ACT Outpatient SHAGGY COLMENARES MD [facility] CARD CHEST WALL PAIN,CAD [id number] 09/04/2015 10:46:00 ACT Outpatient ELLI ALEXIS DO [facility] RAD SCREENING
--- OUTSIDE RECORDS SUMMARY | 2016-08-09 04:20 | XMS REPORT | Continuity of Care Document ---
Author Author [facility] Organization [facility] Address Unknown Phone Unavailable Allergies Active Description Code Type Severity Reaction Onset Reported/Identified Relationship to Patient Clinical Status Yes ciprofloxacin [id number] Drug Allergy Unknown N/A 08/25/2006 Yes Penicillins [id number] Drug Allergy Unknown N/A 08/25/2006 Medications Problems Date Dx Coded Attending Type Code Diagnosis Diagnosed By 05/14/2014 ANAND WALLACE, SUNDAR Crooks Ot 414.01 05/14/2014 ANAND WALLACE, SUNDAR Crooks Ot 592.1 05/14/2014 ANAND WALLACE, SUNDAR Crooks Ot V45.82 05/14/2014 ANAND WALLACE, SUNDAR Crooks Ot 414.01 05/14/2014 ANAND WALLACE, SUNDAR Crooks Ot 592.1 05/14/2014 ANAND WALLACE, SUNDAR Crooks Ot 618.4 05/14/2014 ANAND WALLACE, [...] S Ot I25.10 ATHSCL HEART DISEASE OF [place] CORONARY 07/04/2016 ELLI ALEXIS DO Ot R07.89 OTHER CHEST PAIN 07/04/2016 ELLI ALEXIS DO Ot Z95.5 PRESENCE OF CORONARY ANGIOPLASTY IMPLANT 07/06/2016 CRUZ PEREZ MD Ot 592.9 URINARY CALCULUS NOS 07/06/2016 ELLI ALEXIS DO Ot Z12.31 ENCNTR SCREEN MAMMOGRAM FOR MALIGNANT NE 07/06/2016 SHAGGY COLMENARES MD Ot I25.10 ATHSCL HEART DISEASE OF [place] CORONARY 07/06/2016 SHAGGY COLMENARES MD Ot R07.89 OTHER CHEST PAIN 07/06/2016 SHAGGY COLMENARES MD Ot I25.10 ATHSCL HEART DISEASE OF [place] CORONARY 07/06/2016 SHAGGY COLMENARES MD Ot R07.89 OTHER CHEST PAIN 07/08/2016 SHAGGY COLMENARES MD Ot I25.10 ATHSCL HEART DISEASE OF [place] CORONARY 07/08/2016 SHAGGY COLMENARES MD Ot R07.89 OTHER CHEST PAIN 07/24/2016 SHAGGY COLMENARES MD Ot I25.10 ATHSCL HEART DISEASE OF [place] CORONARY 07/24/2016 SHAGGY COLMENARES MD Ot R07.89 [...] Status Pt. Type Provider Facility Loc./Unit Complaint [id number] 07/03/2016 19:29:00 2016 11:22:00 DIS Inpatient ELLI ALEXIS DO [facility] ICU CHEST PAIN [id number] 08/21/2014 00:11:00 2014 23:59:59 CLS Preadmit CRUZ PEREZ MD [facility] LAB STONES [id number] 05/22/2014 16:27:00 2014 00:01:00 DIS Outpatient CRUZ PEREZ MD [facility] LAB STONES [id number] 05/13/2014 16:50:00 2014 14:55:00 DIS Inpatient SUNDAR MICHEL MD [facility] SURGICAL [id number] 07/06/2016 08:19:00 ACT Outpatient SHAGGY COLMENARES MD [facility] CARD CHEST WALL PAIN,CAD [id number] 09/04/2015 10:46:00 ACT Outpatient ELLI ALEXIS DO [facility] RAD SCREENING
== END 2016-07-04 10:38 | disposition home or self-care (01) ==
LOC: EDUNIT# 17:52 → ER 17:54 → UNDOADMOB 19:29 → ICU 19:29 → UNDODISOB 07-04 10:38
PROVIDERS: ADMIT Family Medicine; ATTEND Family Medicine
DX: R07.89 Other chest pain (principal); I25.10 Atherosclerotic heart disease of native coronary artery without angina pectoris; E78.5 Hyperlipidemia, unspecified; G43.909 Migraine, unspecified, not intractable, without status migrainosus; Z95.5 Presence of coronary angioplasty implant and graft; I10 Essential (primary) hypertension
CPT/HCPCS: 36415; 71010; 80053; 80061; 82150; 82550; 82553; 83690; 83735; 83874; 83880; 84484; 85025; 85610; 85730; 93005; 93041; 96372; 96374; 96375; G0378

== ENCOUNTER → 2016-07-06 | Outpatient (CLI) | payer OTHER ==
[~2016-07-06] MED LIST changes: +ASPI-983 PO
--- NOTE | 2016-07-07 08:23 | STRESS TEST ---
PROCEDURE PHYSICIAN: SHAGGY COLMENARES DATE OF PROCEDURE: 07/06/2016 EXERCISE STRESS ECHOCARDIOGRAM REPORT: REFERRING PHYSICIAN: Dr. Esparza. INDICATION FOR THE PROCEDURE: Chest pain. BASELINE HEART RATE: 66 BASELINE BLOOD PRESSURE: 142/80 BASELINE EKG: Sinus rhythm with no ischemic changes. IN SUMMARY: The patient started exercising with a baseline heart rate, blood pressure and EKG mentioned above. She was able to exercise for a total of 4 minutes on standard Khanh protocol, achieving maximum heart rate of 158, which is 99% of maximum expected heart rate. With peak exercise level, EKG was showing [address] depression in 2, 3, aVF. Blood pressure was 168/65. During recovery, heart rate and blood pressure returned to baseline. EKG returned to baseline. Echocardiographic images were acquired and reviewed in the parasternal long axis, parasternal short axis, apical 4 chamber and apical 2 chamber views. Review of the images showed normal left ventricular size with normal contractility. No ischemic changes. IN CONCLUSION: 1. Fair exercise tolerance a total of 4 minutes on standard Khanh protocol. Total of 7 METs, achieving 99% of maximum expected heart rate. 2. Appropriate heart rate and blood pressure response to exercise, returned to baseline during recovery. 3. Nondiagnostic EKG changes with exercise, returned to baseline during recovery. 4. Normal echocardiographic images at rest and with peak stress level with no ischemic changes. Job ID: [id number] Dictated Date: 07/06/2016 18:28:07 Psychologist Developmental Date: 07/07/2016 08:20:59 / [email or web address]
== END ==
LOC: CARD 08:19
PROVIDERS: ATTEND Internal Medicine Cardiovascular Disease
DX: I25.10 Atherosclerotic heart disease of native coronary artery without angina pectoris (principal); R07.89 Other chest pain

== ENCOUNTER → 2016-10-05 | Outpatient (CLI) | payer OTHER ==
--- NOTE | 2016-10-05 19:16 | Diagnostic Imaging Report ---
Diagnostic right breast mammogram. The current study was also evaluated with a Computer Aided Detection (CAD) system. COMPARISON: 09/11/16. FINDINGS: There is underlying dense breast parenchyma at the level of the medial asymmetry evaluated on a focal compression view with no definite underlying lesion seen. IMPRESSION: No definite underlying mass with suggestion of summation artifacts explaining the asymmetry seen on the prior exam. Ultrasound evaluation pending. ACR BI-RADS Category 0: Incomplete. (Needs additional imaging evaluation). Result letter will be mailed to the patient. Note: At least 10% of breast cancer is not imaged by mammography. Dictated by: Dictated on workstation # [id number]
--- NOTE | 2016-10-05 20:34 | Diagnostic Imaging Report ---
EXAM: Right breast ultrasound. INDICATION: Medial right breast asymmetry. FINDINGS: The four-quadrant retroareolar regions of the right breast were scanned with no underlying abnormality seen. IMPRESSION: Negative study. The asymmetry seen on the prior mammogram is probably related to summation artifact of parenchyma. Annual screening mammogram is recommended. BI-RADS 1. ACR BI-RADS Category 1: Negative. Result letter will be mailed to the patient. Note: At least 10% of breast cancer is not imaged by mammography. Dictated by: Dictated on workstation # [id number]
== END ==
LOC: RAD 08:18
PROVIDERS: ATTEND Family Medicine
DX: N64.89 Other specified disorders of breast (principal)
CPT/HCPCS: 76641

== ENCOUNTER → 2017-04-02 | Outpatient (CLI) | payer OTHER ==
[~2017-04-02] MED LIST changes: +ALPR0.254 PO; +PROAIR
[2017-04-02 21:03] LABS: BASOPHILS % (AUTO) 0 % (0-10); EOSINOPHILS # (AUTO) 0.3 10^3/uL (0.0-0.3); EOSINOPHILS % (AUTO) 4 % (0-10); HEMATOCRIT 41 % (35-52); HEMOGLOBIN 15.1 G/DL (11.5-16.0); LYMPHOCYTES # (AUTO) 1.7 X 10^3 (1.0-4.0); LYMPHOCYTES % (AUTO) 25 % (12-44); MEAN CORPUSCULAR HEMOGLOBIN 28 PG (25-34); MEAN CORPUSCULAR HGB CONC 37 G/DL (32-36); MEAN CORPUSCULAR VOLUME 77 FL (80-99); MEAN PLATELET VOLUME 10.1 FL (7.4-10.4); MONOCYTES # (AUTO) 0.4 X 10^3 (0.0-1.0); MONOCYTES % (AUTO) 6 % (0-12); NEUTROPHILS # (AUTO) 4.3 X 10^3 (1.8-7.8); NEUTROPHILS % (AUTO) 65 % (42-75); PLATELET COUNT 255 10^3/uL (130-400); RED BLOOD COUNT 5.36 10^6/uL (4.35-5.85); RED CELL DISTRIBUTION WIDTH 14.8 % (10.0-14.5); WHITE BLOOD COUNT 6.7 10^3/uL (4.3-11.0)
[2017-04-02 21:13] LABS: ALANINE AMINOTRANSFERASE 27 U/L (0-55); ALBUMIN 4.2 GM/DL (3.2-4.5); ALKALINE PHOSPHATASE 67 U/L (40-136); BILIRUBIN,TOTAL 0.3 MG/DL (0.1-1.0); BUN/CREATININE RATIO 15; CALCIUM 9.3 MG/DL (8.5-10.1); CARBON DIOXIDE 27 MMOL/L (21-32); CHLORIDE 102 MMOL/L (98-107); CREATININE SERUM 0.74 MG/DL (0.60-1.30); GFR ESTIMATED > 60; GLUCOSE 102 MG/DL (70-105); POTASSIUM 3.9 MMOL/L (3.6-5.0); SODIUM 142 MMOL/L (135-145); TOTAL PROTEIN 7.7 GM/DL (6.4-8.2)
== END ==
LOC: LAB 20:38
PROVIDERS: ATTEND Nurse Practitioner Family
DX: J18.9 Pneumonia, unspecified organism (principal); R05 Cough
CPT/HCPCS: 36415; 80053; 85025; 86738

== ENCOUNTER 2017-04-18 18:19 | Emergency (ER) | payer OTHER ==
[~2017-04-18] VITALS: Ht 154.9 cm; Wt 74.8 kg
[~2017-04-18 18:19] MED LIST changes: -ALPR0.254 PO; -PROAIR
--- OUTSIDE RECORDS SUMMARY | 2017-04-18 18:24 | XMS REPORT | Continuity of Care Document ---
Author Author [facility] Organization [facility] Address Unknown Phone Unavailable Allergies Active Description Code Type Severity Reaction Onset Reported/Identified Relationship to Patient Clinical Status Yes ciprofloxacin [id number] Drug Allergy Unknown N/A 08/25/2006 Yes Penicillins [id number] Drug Allergy Unknown N/A 08/25/2006 Medications There is no data. Problems Date Dx Coded Attending Type Code [...] ENCNTR SCREEN MAMMOGRAM FOR MALIGNANT NE 09/21/2015 ELLI ALEXIS DO S Ot Z12.31 ENCNTR SCREEN MAMMOGRAM FOR MALIGNANT NE 07/04/2016 ELLI ALEXIS DO S Ot E78.5 HYPERLIPIDEMIA, UNSPECIFIED 07/04/2016 ELLI ALEXIS DO S Ot G43.909 MIGRAINE, UNSP, NOT INTRACTABLE, WITHOUT 07/04/2016 FRANCHESKA ALEXIS DOLINE S Ot I10 ESSENTIAL (PRIMARY) HYPERTENSION 07/04/2016 FRANCHESKA ALEXIS DOLINE S Ot I25.10 ATHSCL HEART DISEASE OF [place] CORONARY 07/04/2016 ELLI ALEXIS DO Ot R07.89 OTHER CHEST PAIN 07/04/2016 ELLI ALEXIS DO Ot Z95.5 PRESENCE OF CORONARY ANGIOPLASTY IMPLANT 07/06/2016 CHRIS WALLACE, CRUZ Guevara Ot 592.9 URINARY CALCULUS NOS 07/06/2016 ELLI ALEXIS DO Ot Z12.31 ENCNTR SCREEN MAMMOGRAM FOR MALIGNANT NE 07/06/2016 SHAGGY COLMENARES MD Ot I25.10 ATHSCL HEART DISEASE OF [place] CORONARY 07/06/2016 SHAGGY COLMENARES MD Ot R07.89 OTHER CHEST PAIN 07/06/2016 SHAGGY COLMENARES MD Ot I25.10 ATHSCL HEART DISEASE OF [place] CORONARY 07/06/2016 SHAGGY COLMENARES MD Ot R07.89 OTHER CHEST PAIN 07/08/2016 SHAGGY COLMENARES MD Ot I25.10 ATHSCL HEART DISEASE OF [place] CORONARY 07/08/2016 SHAGGY COLMENARES MD Ot R07.89 OTHER CHEST PAIN 07/24/2016 SHAGGY COLMENARES MD Ot I25.10 ATHSCL HEART DISEASE OF [place] CORONARY 07/24/2016 SHAGGY COLMENARES MD Ot R07.89 OTHER CHEST PAIN 10/23/2016 ELLI ALEXIS DO Ot N64.89 OTHER SPECIFIED DISORDERS OF BREAST Procedures There is no data. Results Test Result Range Complete blood count (CBC) with automated white blood cell (WBC) differential - 07/03/16 18:10 Blood leukocytes automated count (number/volume) 13.1 10*3/uL 4.3-11.0 Blood erythrocytes automated count (number/volume) 5.20 10*6/uL 4.35-5.85 Venous blood hemoglobin measurement (mass/volume) 14.8 [...] Automated blood platelet mean volume measurement 10.8 [foz_us] 7.4-10.4 Automated blood neutrophils/100 leukocytes 80 % [...] Serum or plasma sodium measurement (moles/volume) 137 mmol/L 135-145 Serum or plasma potassium measurement (moles/volume) 4.0 mmol/L 3.6-5.0 Serum or plasma chloride measurement (moles/volume) 101 mmol/L 98-107 Carbon dioxide 21 mmol/L 21-32 Serum or plasma anion gap determination (moles/volume) 15 mmol/L 5-14 Serum or plasma urea nitrogen measurement (mass/volume) 13 mg/dL 7-18 Serum or plasma creatinine measurement (mass/volume) 0.78 mg/dL 0.60-1.30 Serum or plasma urea nitrogen/creatinine mass [...] or plasma troponin i.cardiac measurement (mass/volume) < ng/ mL <0.30 Serum or plasma amylase measurement (enzymatic activity/volume) - 07/03/16 18: 10 Serum or plasma amylase measurement (enzymatic activity/volume) 74 U /L 25-125 Lipase - 07/03/16 18:10 Lipase 49 U/L 8-78 Serum or plasma lithium measurement (moles/volume) - 07/03/16 18:10 BNP level 39.4 pg/mL <100.0 Serum or plasma troponin i.cardiac measurement (mass/volume) - 07/04/16 00:20 Serum or plasma troponin i.cardiac measurement (mass/volume) < ng/ mL <0.30 Complete blood count (CBC) with automated white blood cell (WBC) differential - 07/04/16 03:18 Blood leukocytes automated count (number/volume) 8.7 10*3/uL 4.3-11.0 Blood erythrocytes automated count (number/volume) 4.66 10*6/uL 4.35-5.85 Venous blood hemoglobin measurement (mass/volume) 13.3 [...] Automated blood platelet mean volume measurement 11.1 [foz_us] 7.4-10.4 Automated blood neutrophils/100 leukocytes 71 % [...] Serum or plasma sodium measurement (moles/volume) 138 mmol/L 135-145 Serum or plasma potassium measurement (moles/volume) 3.4 mmol/L 3.6-5.0 Serum or plasma chloride measurement (moles/volume) 106 mmol/L 98-107 Carbon dioxide 21 mmol/L 21-32 Serum or plasma anion gap determination (moles/volume) 11 mmol/L 5-14 Serum or plasma urea nitrogen measurement (mass/volume) 9 mg/dL 7-18 Serum or plasma creatinine measurement (mass/volume) 0.61 mg/dL 0.60-1.30 Serum or plasma urea nitrogen/creatinine mass [...] Serum or plasma triglyceride measurement (mass/volume) 76 mg/dL <150 Serum or plasma cholesterol measurement (mass/volume) 191 mg/dL < 200 Serum or plasma cholesterol in HDL measurement (mass/volume) 33 mg/ dL 40-60 Cholesterol in LDL [mass/volume] in serum or plasma by direct assay 149 mg/dL 1-129 Serum or plasma cholesterol in VLDL measurement (mass/volume) 15 mg/ dL 5-40 Complete blood count (CBC) with automated white blood cell (WBC) differential - 04/02/17 20:47 Blood leukocytes automated count (number/volume) 6.7 10*3/uL 4.3-11.0 Blood erythrocytes automated count (number/volume) 5.36 10*6/uL 4.35-5.85 Venous blood hemoglobin measurement (mass/volume) 15.1 g/dL 11.5-16.0 Blood hematocrit (volume fraction) 41 % 35-52 Automated erythrocyte mean corpuscular volume 77 [foz_us] 80-99 Automated erythrocyte mean corpuscular hemoglobin (mass per erythrocyte) 28 pg 25-34 Automated erythrocyte mean corpuscular hemoglobin concentration measurement ( mass/volume) 37 g/dL 32-36 Automated erythrocyte distribution width ratio 14.8 % 10.0-14.5 Automated blood platelet count (count/volume) 255 10*3/uL 130-400 Automated blood platelet mean volume measurement 10.1 [foz_us] 7.4-10.4 Automated blood neutrophils/100 leukocytes 65 % 42-75 Automated blood lymphocytes/100 leukocytes 25 % 12-44 Blood monocytes/100 leukocytes 6 % 0-12 Automated blood eosinophils/100 leukocytes 4 % 0-10 Automated blood basophils/100 leukocytes 0 % 0-10 Blood neutrophils automated count (number/volume) 4.3 10*3 1.8-7.8 Blood lymphocytes automated count (number/volume) 1.7 10*3 1.0-4.0 Blood monocytes automated count (number/volume) 0.4 10*3 0.0-1.0 Automated eosinophil count 0.3 10*3/uL 0.0-0.3 Automated blood basophil count (count/volume) 0.0 10*3/uL 0.0-0.1 Comprehensive metabolic panel - 04/02/17 20:47 Serum or plasma sodium measurement (moles/volume) 142 mmol/L 135-145 Serum or plasma potassium measurement (moles/volume) 3.9 mmol/L 3.6-5.0 Serum or plasma chloride measurement (moles/volume) 102 mmol/L 98-107 Carbon dioxide 27 mmol/L 21-32 Serum or plasma anion gap determination (moles/volume) 13 mmol/L 5-14 Serum or plasma urea nitrogen measurement (mass/volume) 11 mg/dL 7-18 Serum or plasma creatinine measurement (mass/volume) 0.74 mg/dL 0.60-1.30 Serum or plasma urea nitrogen/creatinine mass ratio 15 NRG Serum or plasma creatinine measurement with calculation of estimated glomerular filtration rate > NRG Serum or plasma glucose measurement (mass/volume) 102 mg/dL 70-105 Serum or plasma calcium measurement (mass/volume) 9.3 mg/dL 8.5-10.1 Serum or plasma total bilirubin measurement (mass/volume) 0.3 mg/dL 0.1-1.0 Serum or plasma alkaline phosphatase measurement (enzymatic activity/volume) 67 U/L 40-136 Serum or plasma aspartate aminotransferase measurement (enzymatic activity/ volume) 21 U/L 5-34 Serum or plasma alanine aminotransferase measurement (enzymatic activity/volume ) 27 U/L 0-55 Serum or plasma protein measurement (mass/volume) 7.7 g/dL 6.4-8.2 Serum or plasma albumin measurement (mass/volume) 4.2 g/dL 3.2-4.5 Serum Mycoplasma pneumoniae antibody detection - 04/02/17 20:47 Pleural fluid Mycoplasma pneumoniae IgG antibody titer by immunofluorescence <1:16 Mycoplasma pneumoniae IgM ab [presence] in serum by immunofluorescence <1:10 <1:10 Myocardium ab pattern [interpretation] in serum See Below See Below Encounters ACCT No. Visit Date/Time Discharge Status Pt. Type Provider Facility Loc./Unit Complaint [id number] 04/02/2017 20:38:00 04/02/2017 23:59:59 CLS Outpatient LIAN AVILES [employer] [facility] LAB MYCOPLASMA [id number] 10/05/2016 08:18:00 10/05/2016 23:59:59 CLS Outpatient ELLI ALEXIS DO S [facility] RAD RIGHT BREAST ASYMMETRY [id number] 07/06/2016 08:19:00 07/06/2016 23:59:59 CLS Outpatient SHAGGY COLMENARES MD [facility] CARD CHEST WALL PAIN,CAD [id number] 07/03/2016 19:29:00 07/04/2016 11:22:00 DIS Inpatient ELLI ALEXIS DO S [facility] ICU CHEST PAIN [id number] 09/04/2015 10:46:00 09/04/2015 23:59:59 CLS Outpatient ELLI ALEXIS DO S [facility] RAD SCREENING [id number] 08/21/2014 00:11:00 08/21/2014 23:59:59 CLS Preadmit CRUZ PEREZ MD [facility] LAB STONES [id number] 05/22/2014 16:27:00 08/20/2014 00:01:00 DIS Outpatient CRUZ PEREZ MD [facility] LAB STONES [id number] 05/13/2014 16:50:00 05/14/2014 14:55:00 DIS Inpatient SUNDAR MICHEL MD [facility] SURGICAL
[2017-04-18] MEDS ORDERED: PROAIR (19:11)
[2017-04-18] MEDS ORDERED: ALPRAZolam 0.25 MG (XANAX) TAB PO ONE (19:30)
--- NOTE | 2017-04-18 19:45 | ED Cough/URI ---
General Chief Complaint: Respiratory Problems Stated Complaint: FATIGUE/CP Nursing Triage Note: cough/soa Source: patient Exam Limitations: no limitations History of Present Illness Date Seen by Provider: Apr 18, 2017 Time Seen by Provider: 19:43 Initial Comments To ER with general weakness, nonproductive cough, chest tightness and shortness of breath. Symptoms of been ongoing for a couple weeks. Around the end of February she had influenza, prior to that she had bronchitis, after the influenza in the beginning of March she developed pneumonia. She's been on a Zithromax and doxycycline and just finished Zithromax today and prednisone today she feels very anxious and jittery, feels as though her chest is tight. No wheezing. Did have a coronary stent placed about 5 years ago. Timing/Duration: just prior to arrival Severity/Quality: productive cough Associated Symptoms: cough, fever/chills Allergies and Home Medications Allergies Coded Allergies: Penicillins (Verified Allergy, Unknown, 08/25/06) ciprofloxacin (Verified Allergy, Unknown, 08/25/06) Home Medications Aspirin 81 Mg Tablet., 81 MG PO DAILY, #100 Ref 2 Prescribed by: SHAGGY COLMENARES on 07/04/16 1021 [Proair] , (Reported) Constitutional: see HPI, No chills, No fever, malaise, weakness EENTM: see HPI Respiratory: see HPI, cough, short of breath Cardiovascular: no symptoms reported Genitourinary: no symptoms reported Musculoskeletal: no symptoms reported Skin: no symptoms reported Psychiatric/Neurological: No Symptoms Reported Hematologic/Lymphatic: No Symptoms Reported Immunological/Allergic: no symptoms reported Past Lhdpbky-Ykwaen-Hotviy Hx Patient Social History Alcohol Use: Denies Use Recreational Drug Use: No Smoking Status: Never a Smoker 2nd Hand Smoke Exposure: Yes Recent Foreign Travel: No Contact w/Someone Who Travel: No Recent Infectious Disease Expo: No Recent Hopitalizations: No Immunizations Up To Date Tetanus Booster (TDap): Unknown Seasonal Allergies Seasonal Allergies: Yes Surgeries History of Surgeries: Yes (kidney stone retrieval x 2) Surgeries: Section, Coronary Stent, Orthopedic, Renal Respiratory History of Respiratory Disorde: No Cardiovascular History of Cardiac Disorders: Yes Cardiac Disorders: Coronary Artery Disease Neurological History of Neurological Disord: Yes Neurological Disorders: Headaches /Migraines 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 System : No Hx 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 Disorders: No 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 Genitourinary History of Genitourinary Disor: Yes Genitourinary Disorders: Kidney Stones Gastrointestinal History of Gastrointestinal Di: No Musculoskeletal History of Musculoskeletal Dis: Yes (TOE SURGERY) Musculoskeletal Disorders: Arthritis Endocrine History of Endocrine Disorders: No HEENT History of HEENT Disorders: No Cancer History of Cancer: No Psychosocial History of Psychiatric Problem: No Integumentary History of Skin or Integumenta: No Blood Transfusions History of Blood Disorders: No Physical Exam Vital Signs Vital Sign - Last 12Hours 04/18/17 19:11 Temp 97.7 Pulse 78 Resp 18 B/P (MAP) 149/83 (105) Pulse Ox 100 O2 Delivery Room Air Capillary Refill : Less Than 3 Seconds General Appearance: WD/WN, no apparent distress, other (anxious) HEENT: PERRL/EOMI, normal ENT inspection Neck: non-tender, full range of motion Respiratory: chest non-tender, lungs clear, normal breath sounds, no respiratory distress, no accessory muscle use, No wheezing Cardiovascular: regular rate, rhythm, no murmur Gastrointestinal: normal bowel sounds, non tender, soft Neurologic/Psychiatric: alert, normal mood/affect, oriented x 3 Skin: normal color, warm/dry Progress/Results/Core Measures Suspected Sepsis Recent Fever Within 48 Hours: No Infection Criteria Present: None New/Unexplained Altered Menta: No Sepsis Screen: No Definite Risk Sepsis Diagnosis: SIRS Temperature:97.7 Pulse: 78 Respiratory Rate: 18 Laboratory Tests 04/18/17 19:42: White Blood Count 11.2H Blood Pressure 149 /83 Mean: 105 Laboratory Tests 04/18/17 19:42: Creatinine 0.78, INR Comment 1.0, Platelet Count 284, Total Bilirubin 0.5 Results/Orders Lab Results Laboratory Tests Test 04/18/17 19:42 Range/Units White Blood Count 11.2 H 4.3-11.0 10^3/uL Red Blood Count 5.60 4.35-5.85 10^6/uL Hemoglobin 16.0 11.5-16.0 G/DL Hematocrit 46 35-52 % Mean Corpuscular Volume 83 80-99 FL Mean Corpuscular Hemoglobin 29 25-34 PG Mean Corpuscular Hemoglobin Concent 35 32-36 G/DL Red Cell Distribution Width 15.2 H 10.0-14.5 % Platelet Count 284 130-400 10^3/uL Mean Platelet Volume 11.1 H 7.4-10.4 FL Neutrophils (%) (Auto) 76 H 42-75 % Lymphocytes (%) (Auto) 16 12-44 % Monocytes (%) (Auto) 7 0-12 % Eosinophils (%) (Auto) 1 0-10 % Basophils (%) (Auto) 0 0-10 % Neutrophils # (Auto) 8.5 H 1.8-7.8 X 10^3 Lymphocytes # (Auto) 1.8 1.0-4.0 X 10^3 Monocytes # (Auto) 0.7 0.0-1.0 X 10^3 Eosinophils # (Auto) 0.2 0.0-0.3 10^3/uL Basophils # (Auto) 0.0 0.0-0.1 10^3/uL Prothrombin Time 13.0 12.2-14.7 SEC INR Comment 1.0 0.8-1.4 D-Dimer 0.33 0.00-0.49 UG/ML Sodium Level 142 135-145 MMOL/L Potassium Level 3.9 3.6-5.0 MMOL/L Chloride Level 102 98-107 MMOL/L Carbon Dioxide Level 27 21-32 MMOL/L Anion Gap 13 5-14 MMOL/L Blood Urea Nitrogen 10 7-18 MG/DL Creatinine 0.78 0.60-1.30 MG/DL Estimat Glomerular Filtration Rate > 60 BUN/Creatinine Ratio 13 Glucose Level 96 70-105 MG/DL Calcium Level 9.7 8.5-10.1 MG/DL Total Bilirubin 0.5 0.1-1.0 MG/DL Aspartate Amino Transf (AST/SGOT) 26 5-34 U/L Alanine Aminotransferase (ALT/SGPT) 36 0-55 U/L Alkaline Phosphatase 66 40-136 U/L Troponin I < 0.30 <0.30 NG/ML Total Protein 8.1 6.4-8.2 GM/DL Albumin 4.5 3.2-4.5 GM/DL Thyroid Stimulating Hormone (TSH) 2.68 0.35-4.94 UIU/ML My Orders Orders - ELI AGUERO SERVICE AGENT Cbc With Automated Diff (04/18/17 19:28) Comprehensive Metabolic Panel (04/18/17 19:28) Protime With Inr (04/18/17 19:28) Ekg Tracing (04/18/17 19:28) Troponin I (04/18/17 19:28) Fibrin Degradation Products (04/18/17 19:28) Chest Pa/Lat (2 View) (04/18/17 19:28) Thyroid Stimulating Hormone (04/18/17 19:28) Alprazolam Tablet (Xanax Tablet) (04/18/17 19:30) Medications Given in ED Current Medications Medications Dose Ordered Sig/Laurel Route Start Time Stop Time Status Last Admin Dose Admin Alprazolam 0.25 mg ONCE ONCE PO 04/18/17 19:30 04/18/17 19:31 DC 04/18/17 19:43 0.25 MG Vital Signs/I&O Vital Sign - Last 12Hours 04/18/17 04/18/17 19:11 20:33 Temp 97.7 Pulse 78 77 Resp 18 16 B/P (MAP) 149/83 (105) 131/81 (98) Pulse Ox 100 99 O2 Delivery Room Air Room Air Capillary Refill : Less Than 3 Seconds Blood Pressure Mean: 105 Departure Communication (Admissions) Progress Notes 2100- patient is feeling much better at this time without chest tightness and difficulty breathing after the Xanax. Her troponin is negative despite greater than 8 hours of this chest tightness and anxiousness. She agrees to follow up with Dr. Colmenares. She'll call tomorrow to make an appointment and she'll return to the emergency room for any worsening or recurrent chest tightness or shortness of breath. Impression Impression: Primary Impression: Bronchitis Additional Impression: Chest tightness Disposition: HOME, SELF-CARE Condition: Stable Departure-Patient Inst. Decision time for Depature: 21:03 Referrals: ELLI ALEXIS DO (PCP/Family) Primary Care Physician Patient Instructions: Acute Bronchitis, Adult (DC) Add. Discharge Instructions: 1. Please call Dr. Colmenares tomorrow morning to make an appointment to be seen preferably this week since we do have cardiac risk factors including coronary stenting. Return to the emergency room for any worsening or recurrent chest pain or shortness of breath. All discharge instructions reviewed with patient and/or family. Voiced understanding. Scripts Alprazolam (Alprazolam) 0.25 Mg Tablet 0.25 MG PO BID Y for NERVOUSNESS, #5 TAB Prov: ELI AGUERO SERVICE AGENT 04/18/17 Copy Copies To 1: SHAGGY COLMENARES MD Copies To 2: ELLI ALEXIS PETER J APRN Apr 18, 2017 19:45
[2017-04-18 19:48] LABS: BASOPHILS % (AUTO) 0 % (0-10); EOSINOPHILS # (AUTO) 0.2 10^3/uL (0.0-0.3); EOSINOPHILS % (AUTO) 1 % (0-10); HEMATOCRIT 46 % (35-52); LYMPHOCYTES # (AUTO) 1.8 X 10^3 (1.0-4.0); LYMPHOCYTES % (AUTO) 16 % (12-44); MEAN CORPUSCULAR HEMOGLOBIN 29 PG (25-34); MEAN CORPUSCULAR HGB CONC 35 G/DL (32-36); MEAN CORPUSCULAR VOLUME 83 FL (80-99); MEAN PLATELET VOLUME 11.1 FL (7.4-10.4); MONOCYTES # (AUTO) 0.7 X 10^3 (0.0-1.0); MONOCYTES % (AUTO) 7 % (0-12); NEUTROPHILS # (AUTO) 8.5 X 10^3 (1.8-7.8); NEUTROPHILS % (AUTO) 76 % (42-75); PLATELET COUNT 284 10^3/uL (130-400); RED CELL DISTRIBUTION WIDTH 15.2 % (10.0-14.5); WHITE BLOOD COUNT 11.2 10^3/uL (4.3-11.0)
[2017-04-18 20:01] LABS: FIBRIN DEGRADATION PRODUCTS 0.33 UG/ML (0.00-0.49)
[2017-04-18 20:05] LABS: ALANINE AMINOTRANSFERASE 36 U/L (0-55); ALBUMIN 4.5 GM/DL (3.2-4.5); ALKALINE PHOSPHATASE 66 U/L (40-136); BILIRUBIN,TOTAL 0.5 MG/DL (0.1-1.0); CALCIUM 9.7 MG/DL (8.5-10.1); CARBON DIOXIDE 27 MMOL/L (21-32); CHLORIDE 102 MMOL/L (98-107); GLUCOSE 96 MG/DL (70-105); POTASSIUM 3.9 MMOL/L (3.6-5.0); SODIUM 142 MMOL/L (135-145); TOTAL PROTEIN 8.1 GM/DL (6.4-8.2)
--- NOTE | 2017-04-18 20:12 | Diagnostic Imaging Report ---
CHEST PA/LAT (2 VIEW) Indication: Cough and chest tightness Comparison: 07/03/2016 Findings: No focal pneumonic consolidation, pleural effusion or pneumothorax. Normal heart size and pulmonary vasculature. Impression: No acute cardiopulmonary process. Dictated by: Dictated on workstation # [id number]
[2017-04-18 20:33] VITALS: BP 131/81
[2017-04-18 20:39] LABS: BUN/CREATININE RATIO 13; CREATININE SERUM 0.78 MG/DL (0.60-1.30); GFR ESTIMATED > 60
[2017-04-18] MEDS ORDERED: ALPR0.254 PO (21:04)
[2017-04-18 21:06] VITALS: BP 136/95
== END 2017-04-18 21:06 | disposition home or self-care (01) ==
LOC: EDUNIT# 18:19 → ER 18:20
DX: J40 Bronchitis, not specified as acute or chronic (principal); I25.10 Atherosclerotic heart disease of native coronary artery without angina pectoris; G43.909 Migraine, unspecified, not intractable, without status migrainosus; Z87.442 Personal history of urinary calculi; Z95.5 Presence of coronary angioplasty implant and graft; Z79.82 Long term (current) use of aspirin
CPT/HCPCS: 36415; 71046; 80053; 84443; 84484; 85025; 85379; 85610; 93005

== ENCOUNTER → 2017-06-02 | Outpatient (CLI) | payer OTHER ==
[~2017-06-02] MED LIST changes: +ALPR0.254 PO; +PROAIR
== END ==
LOC: RT 12:49
PROVIDERS: ATTEND Family Medicine
DX: R05 Cough (principal); R06.00 Dyspnea, unspecified; R06.2 Wheezing
CPT/HCPCS: 94060; 94726; 94729

== ENCOUNTER 2017-07-21 21:15 | Emergency (ER) | payer OTHER ==
[~2017-07-21] VITALS: Ht 154.9 cm; Wt 74.8 kg
[2017-07-21] MEDS ORDERED: NS IV 1000 ML 1,500 ML IV PRN (21:30)
[2017-07-21] MEDS ORDERED: cefTRIAXone INJECTION 1,000 MG in NS (IVPB) 100 ML IV ONE (21:30)
[2017-07-21] MEDS ORDERED: ONDANSETRON 4 MG/2 ML (SDV) Z0FRAN IVP PRN (21:30)
[2017-07-21] MEDS ORDERED: ACETAMINOPHEN 500 MG TAB (TYLENOL) PO PRN (21:30)
--- NOTE | 2017-07-21 21:35 | ED General ---
General Stated Complaint: N/V Source of Information: Patient Exam Limitations: No Limitations History of Present Illness Date Seen by Provider: Jul 21, 2017 Time Seen by Provider: 21:18 Initial Comments Patient presents to the private conveyance with her significant other and a chief complaint that for the past 3 or 4 days she's had some right upper quadrant abdominal pain meds mild intermittent and nausea and vomiting. She went to see her doctor yesterday and was diagnosed with UTI and put on Bactrim. She was given Zofran but unfortunate she is still vomiting and does not feel that she continue the Bactrim down. She's had some low-grade fevers. She has not taken anything for pain such as Tylenol Motrin or aspirin. She has a history of stent 5 or 6 years ago but is no longer any blood thinners other than aspirin daily. She is not diabetic. She is not having any chest pain, shortness of breath, diarrhea or constipation. She took a 4 mg ODT Zofran about 2 hours ago. She says it helped some. She does have a history of kidney stones. The states last couple days she had some back pain on her right side. Allergies and Home Medications Allergies Coded Allergies: Penicillins (Verified Allergy, Unknown, 08/25/06) ciprofloxacin (Verified Allergy, Unknown, 08/25/06) Home Medications Alprazolam 0.25 Mg Tablet, 0.25 MG PO BID PRN for NERVOUSNESS Prescribed by: ELI AGUERO on 04/18/17 210 Aspirin 81 Mg Tablet.dr, 81 MG PO DAILY Prescribed by: SHAGGY COLMENARES on 07/04/16 1021 Patient Home Medication List Home Medication List Reviewed: Yes Review of Systems Constitutional: chills, fever, malaise EENTM: No ear pain, No blurred vision Respiratory: No cough, No short of breath Cardiovascular: Hx of Intervention; No palpitations; vascular heart diseas Gastrointestinal: see HPI, abdominal pain (none presently); No constipation, No diarrhea; nausea, vomiting Genitourinary: No discharge, No dysuria, No frequency; hematuria : No Past Xwmnqqx-Vdqfyn-Eifgkd Hx Patient Social History 2nd Hand Smoke Exposure: Yes Recent Foreign Travel: No Contact w/Someone Who Travel: No Recent Hopitalizations: No Immunizations Up To Date Tetanus Booster (TDap): Unknown Seasonal Allergies Seasonal Allergies: Yes Past Medical History Surgeries: Yes (kidney stone retrieval x 2) Section, Coronary Stent, Orthopedic, Renal Respiratory: No Cardiac: Yes Coronary Artery Disease Neurological: Yes Headaches /Migraines 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 Genitourinary: Yes Kidney Stones Gastrointestinal: No Musculoskeletal: Yes (TOE SURGERY) Arthritis Endocrine: No HEENT: No Cancer: No Psychosocial: No Integumentary: No Blood Disorders: No Physical Exam-Suspected Sepsis Physical Exam Vital Signs Vital Signs - First Documented 07/21/17 21:39 Temp 100.2 Pulse 120 Resp 16 B/P (MAP) 143/79 (100) Pulse Ox 97 Capillary Refill : General Appearance: No Apparent Distress, WD/WN Eyes: Bilateral Eye Normal Inspection, Bilateral Eye PERRL, Bilateral Eye EOMI HEENT: PERRL/EOMI, Pharynx Normal Neck: Full Range of Motion, Normal Inspection Respiratory: Chest Non Tender, Lungs Clear, Normal Breath Sounds, No Accessory Muscle Use, No Respiratory Distress Cardiovascular: Regular Rate, Rhythm, No Edema, Normal Peripheral Pulses Gastrointestinal: Normal Bowel Sounds, No Organomegaly, Non Tender, Soft, Other (negative for McBurney's point tenderness or Pak sign.) Back: Normal Inspection, No CVA Tenderness, No Vertebral Tenderness Extremity: Normal Capillary Refill, No Pedal Edema Neurologic/Psychiatric: Alert, Oriented x3 Skin: normal color, warm/dry Focused Exam Lactate Level 07/21/17 21:26: Lactic Acid Level 1.00 Lactic Acid Level Laboratory Tests Test 07/21/17 21:26 Lactic Acid Level 1.00 MMOL/L (0.50-2.00) Progress/Results/Core Measures Suspected Sepsis SIRS Temperature: Pulse: Respiratory Rate: Laboratory Tests 07/21/17 21:26: White Blood Count 12.3H Blood Pressure / Mean: 07/21/17 21:26: Lactic Acid Level 1.00 Laboratory Tests 07/21/17 21:26: Creatinine 0.78, INR Comment 1.1, Platelet Count 233, Total Bilirubin 0.7 Results/Orders Lab Results Laboratory Tests Test 07/21/17 21:26 07/21/17 21:37 Range/Units White Blood Count 12.3 H 4.3-11.0 10^3/uL Red Blood Count 5.36 4.35-5.85 10^6/uL Hemoglobin 15.5 11.5-16.0 G/DL Hematocrit 44 35-52 % Mean Corpuscular Volume 83 80-99 FL Mean Corpuscular Hemoglobin 29 25-34 PG Mean Corpuscular Hemoglobin Concent 35 32-36 G/DL Red Cell Distribution Width 14.5 10.0-14.5 % Platelet Count 233 130-400 10^3/uL Mean Platelet Volume 10.7 H 7.4-10.4 FL Neutrophils (%) (Auto) 94 H 42-75 % Lymphocytes (%) (Auto) 2 L 12-44 % Monocytes (%) (Auto) 4 0-12 % Eosinophils (%) (Auto) 0 0-10 % Basophils (%) (Auto) 0 0-10 % Neutrophils # (Auto) 11.6 H 1.8-7.8 X 10^3 Lymphocytes # (Auto) 0.3 L 1.0-4.0 X 10^3 Monocytes # (Auto) 0.5 0.0-1.0 X 10^3 Eosinophils # (Auto) 0.0 0.0-0.3 10^3/uL Basophils # (Auto) 0.0 0.0-0.1 10^3/uL Neutrophils % (Manual) 81 % Lymphocytes % (Manual) 1 % Monocytes % (Manual) 4 % Eosinophils % (Manual) 0 % Basophils % (Manual) 0 % Band Neutrophils 14 % Blood Morphology Comment NORMAL Prothrombin Time 14.6 12.2-14.7 SEC INR Comment 1.1 0.8-1.4 Activated Partial Thromboplast Time 35 24-35 SEC Sodium Level 132 L 135-145 MMOL/L Potassium Level 3.7 3.6-5.0 MMOL/L Chloride Level 99 98-107 MMOL/L Carbon Dioxide Level 24 21-32 MMOL/L Anion Gap 9 5-14 MMOL/L Blood Urea Nitrogen 9 7-18 MG/DL Creatinine 0.78 0.60-1.30 MG/DL Estimat Glomerular Filtration Rate > 60 BUN/Creatinine Ratio 12 Glucose Level 125 H 70-105 MG/DL Lactic Acid Level 1.00 0.50-2.00 MMOL/L Calcium Level 9.7 8.5-10.1 MG/DL Total Bilirubin 0.7 0.1-1.0 MG/DL Aspartate Amino Transf (AST/SGOT) 30 5-34 U/L Alanine Aminotransferase (ALT/SGPT) 30 0-55 U/L Alkaline Phosphatase 62 40-136 U/L Total Protein 7.7 6.4-8.2 GM/DL Albumin 4.3 3.2-4.5 GM/DL Lipase 317 H 8-78 U/L Urine Color YELLOW Urine Clarity CLEAR Urine pH 6 5-9 Urine Specific [place] 1.020 1.016-1.022 Urine Protein 2+ H NEGATIVE Urine Glucose (UA) NEGATIVE NEGATIVE Urine Ketones NEGATIVE NEGATIVE Urine Nitrite NEGATIVE NEGATIVE Urine Bilirubin 1+ H NEGATIVE Urine Urobilinogen 4 H NORMAL MG/DL Urine Leukocyte Esterase 2+ H NEGATIVE Urine RBC (Auto) 4+ H NEGATIVE Urine RBC 5-10 H /HPF Urine WBC 2-5 /HPF Urine Squamous Epithelial Cells 5-10 /HPF Urine Crystals NONE /LPF Urine Bacteria FEW H /HPF Urine Casts NONE /LPF Urine Mucus NEGATIVE /LPF Urine Culture Indicated NO My Orders Orders - CATARINO CAMPBELL Cbc With Automated Diff (07/21/17 21:28) Comprehensive Metabolic Panel (07/21/17 21:28) Lactic Acid Analyzer (07/21/17 21:28) Blood Culture (07/21/17 21:28) Sputum Culture (07/21/17 21:28) Ua Culture If Indicated (07/21/17 21:28) Protime With Inr (07/21/17:) Partial Thromboplastin Time (07/21/17 21:28) Chest 1 View, Ap/Pa Only (07/21/17 21:28) O2 (07/21/17 21:28) Ondansetron Injection (Zofran Injectio (07/21/17 21:30) Acetaminophen Tablet (Tylenol Tablet) (07/21/17 21:30) Saline Lock/Iv-Start (07/21/17 21:28) Saline Lock/Iv-Start (07/21/17 21:28) Ns Iv 1000 Ml (Sodium Chloride 0.9%) (07/21/17 21:30) Vital Signs Adult Sepsis Patie Q1H (07/21/17 21:28) Remove Rings In Anticipation O (07/21/17 21:28) Saline Lock/Iv-Start (07/21/17 21:28) Abdomen/Kub 1view (07/21/17 21:28) Ceftriaxone Injection (Rocephin Injectio (07/21/17 21:30) Lipase (07/21/17 21:35) Manual Differential (07/21/17 21:26) Medications Given in ED Current Medications Medications Dose Ordered Sig/Laurel Route Start Time Stop Time Status Last Admin Dose Admin Acetaminophen 1,000 mg ONCE PRN PO 07/21/17 21:30 07/21/17 22:00 DC 07/21/17 22:00 1,000 MG Ceftriaxone Sodium 1000 mg/ Sodium Chloride 100 ml @ 200 mls/hr ONCE ONCE IV 07/21/17 21:30 07/21/17 21:59 DC 07/21/17 21:59 200 MLS/HR Ondansetron HCl 4 mg ONCE PRN IVP 07/21/17 21:30 07/21/17 21:59 DC 07/21/17 21:58 4 MG Sodium Chloride 1,500 ml @ 1,500 mls/hr PRN PRN IV 07/21/17 21:30 07/21/17 21:58 1,500 MLS/HR Vital Signs/I&O 07/21/17 07/21/17 21:39 22:29 Temp 100.2 100.1 Pulse 120 89 Resp 16 16 B/P (MAP) 143/79 (100) 124/86 Pulse Ox 97 95 Capillary Refill : Progress Note #1: Time: 21:34 Progress Note The patient presents tachycardic with a temperature 100.2. She has not taken anything but rather treat her as a septic patient with a possible history of UTI. Because of her right upper quadrant abdominal pain per history that is no longer tender or sensitive today we'll add a lipase addition to her workup. We' ll start her on 20 mL/kg of normal saline and gave her some more Zofran as well as Tylenol for her malaise. She notes that her allergy to penicillin is hives so she should tolerated Rocephin well. Progress Note #2: Time: 22:17 Progress Note Her sepsis she has a mild white blood cell increased 12-1/2 thousand and more red blood cells and white blood cells in the urine. Return to reexamine her and she still having some pain on the right side when may get a CT scan without contrast to just rule out kidney stone. She states she is feeling much better and no longer tachycardic. She would prefer to try and go home again with the Zofran. We did discuss an observation stay for more IV fluids overnight however she still got about half of the IV fluids tonight to get as well as her antibiotics and she thinks she will feel well to go home we'll reexamine her after our interventions. Progress Note #3: Time: 23:40 Progress Note The patient is pain and nausea free and has received her fluid bolus and would like to go home. We have discussed possible observation stay but she has already received Rocephin which would cover her for 24 hours. We will allow her to go home and follow up outpatient with her primary care office for culture results later this week. She has hematuria but no significant pain to indicate a kidney stone. It may be reasonable to follow this hematuria outpatient make sure it clears with another urinalysis a few weeks later. Diagnostic Imaging Diagonstic Imaging: Xray Plain Films/CT/US/NM/MRI: chest (1v) Comments %(RAD)RES..mtdd.print.filter("cj")VIA [facility] %(RAD)RES..mtdd.print.filter("cj")[place], [place] NAME: CLAY ORTIZ [facility] REC#: [id number] PT STATUS: REG ER : 1955 PHYSICIAN: CATARINO CAMPBELL MD ADMIT DATE: 07/21/17/ER Draft Date of Exam:07/21/17 CHEST 1 VIEW, AP/PA ONLY EXAMINATION: Chest radiograph, portable AP view. DATE: 07/21/2017 at 2210 hours. INDICATION: 61-year-old female, chest pain. COMPARISON: 04/25/2017. FINDINGS: Heart size and mediastinal contours are unremarkable. There is no identified pneumothorax. There is no large pleural effusion. There is no identified focal airspace consolidation. There is no identified significantly displaced rib fracture. There is a mild thoracic dextrocurvature. IMPRESSION: No identified acute cardiopulmonary abnormality. Dictated on workstation # [id number] Dict: 07/21/178 Trans: 07/21/17 2215 JONATHAN [id number] Interpreted by: JOLLY OLIVAS MD Electronically signed by: Reviewed: Reviewed by Me Diagonstic Imaging: Xray Plain Films/CT/US/NM/MRI: abdomen (KUB 1 view) Comments NAME: CLAY ORTIZ [facility] REC#: [id number] PT STATUS: REG ER : 1955 PHYSICIAN: CATARINO CAMPBELL MD ADMIT DATE: 07/21/17/ER Draft Date of Exam:07/21/17 ABDOMEN/KUB 1VIEW EXAMINATION: Abdominal radiographs, single supine view. DATE: 07/21/2017. CLINICAL INDICATION: 61-year-old female, nausea and vomiting for two days. COMPARISON: 05/14/2014. COMMENTS: Upper abdomen is not entirely included in the ljzsw-[id number]-iknn. There are gas-filled segments of predominantly large bowel which are not abnormally distended. There is a moderate volume colonic stool. There is no identified free intraperitoneal air on limited supine assessment. There is no visualized portal venous gas or pneumatosis. There are pelvic calcifications likely relating to phleboliths. There is no identified abnormal radiodensity overlying the kidneys or expected positions of the ureters. There is a lumbar levoscoliosis with degenerative changes of the lower lumbar spine. IMPRESSION: 1. No identified acute abdominal radiographic abnormality. 2. Moderate volume colonic stool. Dictated on workstation # [id number] Dict: 07/21/172206 Trans: 07/21/172214 [facility] [id number] Interpreted by: JOLLY OLIVAS MD Electronically signed by: Reviewed: Reviewed by Me Departure Impression Primary Impression: Urinary tract infection Qualified Codes: N30.01 - Acute cystitis with hematuria Disposition: HOME, SELF-CARE Condition: Stable Departure-Patient Inst. Decision time for Depature: 23:42 Referrals: ELLI ALEXIS DO (PCP/Family) Primary Care Physician Patient Instructions: Urinary Tract Infection, Adult (DC) CATARINO CAMPBELL Jul 21, 2017 21:35
[2017-07-21 21:43] LABS: BASOPHILS % (AUTO) 0 % (0-10); EOSINOPHILS % (AUTO) 0 % (0-10); HEMATOCRIT 44 % (35-52); HEMOGLOBIN 15.5 G/DL (11.5-16.0); LYMPHOCYTES # (AUTO) 0.3 X 10^3 (1.0-4.0); LYMPHOCYTES % (AUTO) 2 % (12-44); MEAN CORPUSCULAR HEMOGLOBIN 29 PG (25-34); MEAN CORPUSCULAR HGB CONC 35 G/DL (32-36); MEAN CORPUSCULAR VOLUME 83 FL (80-99); MEAN PLATELET VOLUME 10.7 FL (7.4-10.4); MONOCYTES # (AUTO) 0.5 X 10^3 (0.0-1.0); MONOCYTES % (AUTO) 4 % (0-12); NEUTROPHILS # (AUTO) 11.6 X 10^3 (1.8-7.8); NEUTROPHILS % (AUTO) 94 % (42-75); PLATELET COUNT 233 10^3/uL (130-400); RED BLOOD COUNT 5.36 10^6/uL (4.35-5.85); RED CELL DISTRIBUTION WIDTH 14.5 % (10.0-14.5); WHITE BLOOD COUNT 12.3 10^3/uL (4.3-11.0)
[2017-07-21 21:45] LABS: BILIRUBIN,URINE 1+ (NEGATIVE); CLARITY,URINE CLEAR; COLOR,URINE YELLOW; GLUCOSE, URINE (UA) NEGATIVE (NEGATIVE); KETONES,URINE NEGATIVE (NEGATIVE); LEUKOCYTE ESTERASE ,URINE 2+ (NEGATIVE); NITRITE,URINE NEGATIVE (NEGATIVE); PH,URINE 6 (5-9); PROTEIN,URINE 2+ (NEGATIVE); UROBILINOGEN,URINE 4 MG/DL (NORMAL)
[2017-07-21 21:54] LABS: INR 1.1 (0.8-1.4); PROTHROMBIN TIME PATIENT 14.6 SEC (12.2-14.7)
[2017-07-21 21:57] LABS: BACTERIA,URINE FEW /HPF
[2017-07-21 22:01] LABS: BAND NEUTROPHILS 14 %; BASOPHILS % (MANUAL) 0 %; EOSINOPHILS % (MANUAL) 0 %; LYMPHOCYTES % (MANUAL) 1 %; MONOCYTES % (MANUAL) 4 %; NEUTROPHILS % (MANUAL) 81 %; RBC MORPH NORMAL
[2017-07-21 22:03] LABS: ALANINE AMINOTRANSFERASE 30 U/L (0-55); ALBUMIN 4.3 GM/DL (3.2-4.5); ALKALINE PHOSPHATASE 62 U/L (40-136); BILIRUBIN,TOTAL 0.7 MG/DL (0.1-1.0); BUN/CREATININE RATIO 12; CALCIUM 9.7 MG/DL (8.5-10.1); CARBON DIOXIDE 24 MMOL/L (21-32); CHLORIDE 99 MMOL/L (98-107); CREATININE SERUM 0.78 MG/DL (0.60-1.30); GFR ESTIMATED > 60; GLUCOSE 125 MG/DL (70-105); LIPASE 317 U/L (8-78); POTASSIUM 3.7 MMOL/L (3.6-5.0); SODIUM 132 MMOL/L (135-145); TOTAL PROTEIN 7.7 GM/DL (6.4-8.2)
--- NOTE | 2017-07-21 22:15 | Diagnostic Imaging Report ---
EXAMINATION: Abdominal radiographs, single supine view. DATE: 07/21/2017. CLINICAL INDICATION: 61-year-old female, nausea and vomiting for two days. COMPARISON: 05/14/2014. COMMENTS: Upper abdomen is not entirely included in the [id number]. There are gas-filled segments of predominantly large bowel which are not abnormally distended. There is a moderate volume colonic stool. There is no identified free intraperitoneal air on limited supine assessment. There is no visualized portal venous gas or pneumatosis. There are pelvic calcifications likely relating to phleboliths. There is no identified abnormal radiodensity overlying the kidneys or expected positions of the ureters. There is a lumbar levoscoliosis with degenerative changes of the lower lumbar spine. IMPRESSION: 1. No identified acute abdominal radiographic abnormality. 2. Moderate volume colonic stool. Dictated by: Dictated on workstation # [id number]
--- NOTE | 2017-07-21 22:15 | Diagnostic Imaging Report ---
EXAMINATION: Chest radiograph, portable AP view. DATE: 07/21/2017 at 2210 hours. INDICATION: 61-year-old female, chest pain. COMPARISON: 04/25/2017. FINDINGS: Heart size and mediastinal contours are unremarkable. There is no identified pneumothorax. There is no large pleural effusion. There is no identified focal airspace consolidation. There is no identified significantly displaced rib fracture. There is a mild thoracic dextrocurvature. IMPRESSION: No identified acute cardiopulmonary abnormality. Dictated by: Dictated on workstation # [id number]
[2017-07-21 23:00] VITALS: BP 129/63
== END 2017-07-21 23:00 ==
LOC: EDUNIT# 21:15 → ER 21:16
DX: N39.0 Urinary tract infection, site not specified (principal); I25.10 Atherosclerotic heart disease of native coronary artery without angina pectoris; G43.909 Migraine, unspecified, not intractable, without status migrainosus; Z98.890 Other specified postprocedural states; Z87.442 Personal history of urinary calculi; Z87.59 Personal history of other complications of pregnancy, childbirth and the puerperium; Z95.5 Presence of coronary angioplasty implant and graft; Z79.82 Long term (current) use of aspirin
CPT/HCPCS: 36415; 71045; 74018; 80053; 81000; 83605; 83690; 85007; 85027; 85610; 85730; 87040; 96361; 96365; 96375

== ENCOUNTER → 2019-01-23 | Outpatient (CLI) | payer OTHER ==
[~2019-01-23] VITALS: Ht 154 cm; Wt 80.0 kg
[~2019-01-23] MED LIST changes: +CATHETER FLUSH 10 ML SYR IV PRN
[2019-01-23 09:15] VITALS: BP 160/69
[2019-01-23 09:19] VITALS: BP 128/71
--- NOTE | 2019-01-23 12:52 | STRESS TEST ---
DATE OF SERVICE: 01/23/2019 EXERCISE MYOVIEW STRESS TEST REPORT REFERRING PHYSICIAN Dr. Esparza. Baseline heart rate is 68. Baseline blood pressure 134/73. Baseline EKG is sinus rhythm with no ischemic changes. In summary, the patient was injected with 10.97 mCi of technetium-99 Myoview and the resting images were obtained. Then, the patient started exercising with a baseline heart rate, blood pressure and EKG mentioned above. The patient was able to exercise for 3 minutes and 30 seconds on standard Khanh protocol. With peak exercise level, EKG was showing nondiagnostic changes. Blood pressure was 219/84. During recovery, heart rate and blood pressure returned to baseline. EKG returned to baseline. The resting and stress images were reviewed and compared in the short axis, horizontal long axis, and vertical long axis views. Review of the images showed reversible ischemia involving the mid to apical inferior wall, true apex and anteroapical segment. SSS is 9, SDS 9, TID value 1.12. On the gated images, the left ventricle is small with hypokinesia at the anteroapical segment and anterolateral wall with calculated ejection fraction 57%. CONCLUSION: 1. Poor exercise tolerance for a total of 3 minutes and 30 seconds on standard Khanh protocol, total of 5.2 METS achieving 92% of maximum expected heart rate. 2. Severe hypertensive response to exercise with peak blood pressure 219/84. 3. Minimal nondiagnostic EKG changes with exercise returned to baseline during recovery. 4. Breast attenuation with reversible ischemia involving the mid to apical inferior wall, true apex and anteroapical segment. 5. Normal left ventricular size with mild hypokinesia at the lateral wall and anterolateral segment and true apex. Calculated ejection fraction 57%. Job ID: [id number] DocumentID: [id number] Dictated Date: 01/23/2019 11:25:31 Fish Technologist Date: 01/23/2019 12:52:21 Dictated By: SHAGGY COLMENARES MD
== END ==
LOC: CARD 07:16
PROVIDERS: ATTEND Internal Medicine Cardiovascular Disease
DX: I25.10 Atherosclerotic heart disease of native coronary artery without angina pectoris (principal); E78.2 Mixed hyperlipidemia; I73.9 Peripheral vascular disease, unspecified
CPT/HCPCS: 78452; 93017; 93306

== ENCOUNTER 2019-02-01 06:52 | Day surgery (SDC) | payer OTHER ==
[2019-02-01] VITALS (10 sets, daily range): BP systolic 110–152; BP diastolic 61–93
[~2019-02-01] VITALS: Ht 154.9 cm; Wt 80.0 kg
[~2019-02-01 06:52] MED LIST changes: -CATHETER FLUSH 10 ML SYR IV PRN
[2019-02-01] MEDS ORDERED: NS IV 1000 ML 1,000 ML ONE (06:59)
[2019-02-01] MEDS ORDERED: HEParin (CATH LAB) 2,000 ML IV ONE (06:59)
[2019-02-01] MEDS ORDERED: LIDOCAINE 1% INJ 20 ML 20 ML VIAL ONE (06:59)
[2019-02-01] MEDS ORDERED: NS IV 1000 ML 1,000 ML IV SCH ×2 (07:00→09:09)
[2019-02-01 07:29] LABS: BILIRUBIN,URINE NEGATIVE (NEGATIVE); CLARITY,URINE CLEAR; COLOR,URINE YELLOW; GLUCOSE, URINE (UA) NEGATIVE (NEGATIVE); KETONES,URINE NEGATIVE (NEGATIVE); LEUKOCYTE ESTERASE ,URINE 1+ (NEGATIVE); NITRITE,URINE NEGATIVE (NEGATIVE); PH,URINE 6 (5-9); PROTEIN,URINE 1+ (NEGATIVE)
[2019-02-01] MEDS ORDERED: MIDAZOLAM 5 MG/5 ML (VERSED) VIAL ONE (07:29)
[2019-02-01] MEDS ORDERED: fentaNYL INJECTION 100 MCG/2 ML AMP ONE (07:29)
[2019-02-01] MEDS ORDERED: KETO10TA PO (07:31)
[2019-02-01] MEDS ORDERED: ASPI-983 PO (07:31)
[2019-02-01] MEDS ORDERED: MULT1TAB69 PO (07:31)
[2019-02-01] MEDS ORDERED: CHOL20003 PO (07:31)
[2019-02-01] MEDS ORDERED: CALC500T7 PO (07:31)
[2019-02-01] MEDS ORDERED: ROSU10TA22 PO (07:31)
[2019-02-01] MEDS ORDERED: SODI30SP2 NSEACH (07:31)
--- NOTE | 2019-02-01 07:32 | NUR ---
SPOKE WITH PT (SHE HAD HER BOTTLES) TO COMPLETE THE MED REC. PT WAS ABLE TO TELL ME HOW/WHEN SHE TAKES ALL HER MEDS (SHE TAKES EVERYTHING AT NIGHT). THE FOLLOWING ARE FILL DATES FROM [facility]: 07-22-2018 KETORALAC #20(USES PRN) 12-12-2018 CRESTOR #30/30DS OTC MEDS: ASPIRIN 81 MTV VIT D3 SALINE NASAL SPRAY-PRN TUMS-PRN
[2019-02-01] MEDS ORDERED: HEParin 1000 UNIT/ML (10ML VIAL) FOR BOLUS ONE (07:33)
[2019-02-01 07:34] LABS: HEMOGLOBIN 15.1 G/DL (11.5-16.0); MEAN PLATELET VOLUME 11.9 FL (7.4-10.4); RED CELL DISTRIBUTION WIDTH 14.7 % (10.0-14.5); WHITE BLOOD COUNT 8.4 10^3/uL (4.3-11.0)
[2019-02-01 07:40] LABS: BACTERIA,URINE FEW /HPF; RBC,URINE 0-2 /HPF; WBC,URINE 0-2 /HPF
--- NOTE | 2019-02-01 07:40 | Diagnostic Imaging Report ---
INDICATION: Heart disease. Comparison made with prior examination 07/21/2017. FINDINGS: The heart size, mediastinal configuration, and pulmonary vascularity are within normal limits. There is no pleural effusion, pneumothorax, or pneumonia. The osseous structures are unremarkable. IMPRESSION: No acute cardiopulmonary abnormality. Dictated by: Dictated on workstation # [id number]
[2019-02-01 07:48] LABS: ALANINE AMINOTRANSFERASE 33 U/L (0-55); ALBUMIN 4.5 GM/DL (3.2-4.5); ALKALINE PHOSPHATASE 60 U/L (40-136); BILIRUBIN,TOTAL 0.4 MG/DL (0.1-1.0); BUN/CREATININE RATIO 14; CALCIUM 10.2 MG/DL (8.5-10.1); CARBON DIOXIDE 26 MMOL/L (21-32); CHLORIDE 104 MMOL/L (98-107); CHOLESTEROL 122 MG/DL (< 200); CREATININE SERUM 0.77 MG/DL (0.60-1.30); GFR ESTIMATED > 60; GLUCOSE 93 MG/DL (70-105); HDL CHOLESTEROL 37 MG/DL (40-60); POTASSIUM 3.7 MMOL/L (3.6-5.0); SODIUM 142 MMOL/L (135-145); TOTAL PROTEIN 7.8 GM/DL (6.4-8.2); TRIGLYCERIDES 48 MG/DL (<150); VLDL CHOLESTEROL 10 MG/DL (5-40)
--- NOTE | 2019-02-01 08:29 | Cardiac Procedure Note-CS/ASA ---
Pre-Procedure Note Pre-Op Procedure Note H&P Reviewed The H&P was reviewed, patient examined and no changes noted. Date H&P Reviewed: Feb 01, 2019 Time H&P Reviewed: 08:29 Conscious Sedation Pre-Proced Time 08:29 ASA Score 3 For ASA 3 and 4: Consider anesthesia and medical clearance. Also, for patients with a history of failed moderate sedation consider anesthesia. Airway Lungs Heart ASA score ASA 1: a normal healthy patient ASA 2: a patient with a mild systemic disease (mid diabetes, controlled hypertension, obesity x ASA 3: a patient with a severe systemic disease that limits activity (angina, COPD, prior Myocardial infarction) ASA 4: a patient with an incapacitating disease that is a constant threat to life (CHF, renal failure) ASA 5: a moribund patient not expected to survive 24 hrs. (ruptured aneurysm) ASA 6: a declared brain- patient whose organs are being harvested. For emergent operations, add the letter E after the classification Mallampati Classification Grade 3 Sedation Plan Analgesia, Amnesia, Plan communicated to team members, Discussed options with patient/fam, Discussed risks with patient/fam The patient is an appropriate candidate to undergo the planned procedure, sedation, and anesthesia. The patient immediately re-assessed prior to indication. SHAGGY COLMENARES MD Feb 01, 2019 08:29 POS
--- NOTE | 2019-02-01 09:08 | Cardiac Cath Report ---
Cardiac Cath Report Physician (s)/Bereavement Program Coordinator (s) Physician SHAGGY COLMENARES MD Pre-Procedure Diagnosis Pre-Procedure Diagnosis: Coronary artery disease Post-Procedure Note Procedure Start Date: Feb 01, 2019 Name of Procedure: Left heart catheterization Findings/Procedure Note PROCEDURE NOTE: 63-year-old lady with history of coronary artery disease, had a stent to the LAD, had abnormal stress test, scheduled for cardiac catheterization possible PTCA. After explaining the procedure to the patient, all pros and cons were explained, all questions were answered. The patient signed the consent and then she was placed on the cardiac catheterization laboratory. Groin was prepped SL fashion local anesthesia was used. Sheath placed in the right femoral artery. Ella right and left catheter were used to access the coronary system. Ella left catheter advanced to the left ventricular cavity, pressure was measured no left ventricular gram was done At the end of the procedure the sheath was removed. 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 Patent stent in the proximal LAD with 40 percent stenosis proximal to the st ent, otherwise mild coronary artery disease 2. 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 Normal left ventricular end-diastolic pressure DISCUSSION AND RECOMMENDATION: medical therapy is recommended no intervention is needed Anesthesia Type: Conscious Sedation Estimated blood loss (mL): 25 ml Contrast Amount: 50 ml Total Radiation Dose: 274 mGy Post-Procedure Diagnosis Post-operative diagnosis: Chest pain Coronary artery disease Hypertension Hyperlipidemia SHAGGY COLMENARES MD Feb 01, 2019 09:08 POS
--- NOTE | 2019-02-01 09:11 | Discharge Inst-Post CATH ---
Discharge Inst-CATH/EP Problems Reviewed?: Yes Post Cardiac Cath/EP D/C Inst Follow Up/Plan Appointment with Dr. COLMENARES's office in 2-4 weeks <b>CARDIAC CATH/EP PROCEDURE DISCHARGE INSTRUCTIONS</b> ACTIVITY * Go Home directly and rest. * Limit activity of the leg (or wrist if it was used) for 7 days including aerobics, swimming, jogging, bicycling, etc. * Restrict stair-climbing for 7 days if possible, if not, climb up with your non-cath leg, then bring together on the same step. * Avoid lifting, pushing, pulling or excessive movement of the affected extremity for 7 days. * Customary sexual activity may be resumed after 2 days-use caution not to use a position that strains or causes pain to the affected extremity. * No driving for 24 hours. * NO SMOKING. * Avoid straining for bowel movements for 7 days. * Gentle walking on level ground is allowed. * Returning to work will depend on the type of procedure and the results. Your doctor will discuss this with you. CALL YOUR DOCTOR FOR ANY OF THE FOLLOWING: *If bleeding from the puncture site occurs- Apply gentle pressure to site with clean cloth and call your doctor or EMS. * If a knot or lump forms under the skin, increases in size, or causes pain. * If bruising appears to be worsening or moving further down your leg instead of disappearing. * Temperature above 101 F. CARE OF YOUR GROIN INCISION; * Bruising or purple discoloration of the skin near the puncture site is common. * You may shower only, no bathtub bathing for 5 days. Be careful to avoid slipping as your leg may feel stiff. * If a closure device was used on your femoral artery, please see the attached guide regarding care of the device and your leg. * Leave dressing on FOR 24 hours. CARE OF YOUR WRIST INCISION; * Bruising or purple discoloration of the skin near the puncture site is common. * You may shower. * DO NOT submerge wrist. * Leave dressing on FOR 24 hours. SHAGGY COLMENARES MD Feb 01, 2019 09:11 POS
[2019-02-01] MEDS ORDERED: PATIENT MAY USE OWN MEDS, ALL PO SCH (09:15)
== END 2019-02-01 13:00 | disposition home or self-care (01) ==
LOC: CATH 06:52 → SDC 09:06 → CATH 13:00
PROVIDERS: ATTEND Internal Medicine Cardiovascular Disease
DX: I25.10 Atherosclerotic heart disease of native coronary artery without angina pectoris (principal); I73.9 Peripheral vascular disease, unspecified; I08.1 Rheumatic disorders of both mitral and tricuspid valves; E78.2 Mixed hyperlipidemia; G43.809 Other migraine, not intractable, without status migrainosus; I11.0 Hypertensive heart disease with heart failure; I50.30 Unspecified diastolic (congestive) heart failure; Z88.0 Allergy status to penicillin; Z88.1 Allergy status to other antibiotic agents; Z83.3 Family history of diabetes mellitus; Z82.49 Family history of ischemic heart disease and other diseases of the circulatory system; Z80.9 Family history of malignant neoplasm, unspecified; Z79.82 Long term (current) use of aspirin
CPT/HCPCS: 36415; 71045; 80053; 80061; 81000; 85027; 85610; 85730; 87081; 93458

== ENCOUNTER 2019-04-29 03:36 | Emergency (ER) | payer OTHER ==
[~2019-04-29] VITALS: Ht 155 cm; Wt 73.3 kg
[~2019-04-29 03:36] MED LIST changes: +CALC500T7 PO; +CHOL20003 PO; +KETO10TA PO; +MULT1TAB69 PO; +ROSU10TA22 PO; +SODI30SP2 NSEACH
[2019-04-29 03:55] LABS: BASOPHILS # (AUTO) 0.1 10^3/uL (0.0-0.1); BASOPHILS % (AUTO) 1 % (0-10); EOSINOPHILS # (AUTO) 0.6 10^3/uL (0.0-0.3); EOSINOPHILS % (AUTO) 6 % (0-10); HEMATOCRIT 43 % (35-52); HEMOGLOBIN 14.5 G/DL (11.5-16.0); LYMPHOCYTES # (AUTO) 1.8 X 10^3 (1.0-4.0); LYMPHOCYTES % (AUTO) 18 % (12-44); MEAN CORPUSCULAR HEMOGLOBIN 29 PG (25-34); MEAN CORPUSCULAR HGB CONC 34 G/DL (32-36); MEAN CORPUSCULAR VOLUME 85 FL (80-99); MEAN PLATELET VOLUME 11.5 FL (7.4-10.4); MONOCYTES # (AUTO) 0.8 X 10^3 (0.0-1.0); MONOCYTES % (AUTO) 8 % (0-12); NEUTROPHILS # (AUTO) 6.9 X 10^3 (1.8-7.8); NEUTROPHILS % (AUTO) 68 % (42-75); PLATELET COUNT 256 10^3/uL (130-400); RED CELL DISTRIBUTION WIDTH 14.9 % (10.0-14.5); WHITE BLOOD COUNT 10.1 10^3/uL (4.3-11.0)
[2019-04-29] MEDS ORDERED: NITROGLYCERIN 0.4 MG SL TABS BTL 25'S SL PRN (04:00)
[2019-04-29] MEDS ORDERED: ASPIRIN 81 MG CHEW (CHILDREN'S ASA) PO ONE (04:00)
--- NOTE | 2019-04-29 04:05 | NUR ---
pt reports chest pain gone after 1 ntg.
--- NOTE | 2019-04-29 04:13 | ED Chest Pain ---
General Chief Complaint: Chest Pain Stated Complaint: MILD CP/BLOOD PRESSURE 157/95 Nursing Triage Note: left chest pain radiating to back since 2300 04/28/2019 Nursing Sepsis Screen: No Definite Risk Source: patient (SHREYA RODRIGUEZ DO) History of Present Illness Date Seen by Provider: Apr 29, 2019 Time Seen by Provider: 03:43 Initial Comments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llergies and Home Medications Allergies Coded Allergies: Penicillins (Verified Allergy, Unknown, 08/25/06) ciprofloxacin (Verified Allergy, Unknown, 08/25/06) Home Medications Aspirin 81 Mg Tablet.dr, 81 MG PO HS, (Reported) Calcium Carbonate 200 Mg Tab.chew, 400 MG PO PRN PRN for INDIGESTION, (Reported) Cholecalciferol (Vitamin D3) 2,000 Unit Capsule, 2,000 UNIT PO HS, (Reported) Ketorolac Tromethamine 10 Mg Tablet, 20 MG PO PRN PRN for MIGRAINE, (Reported) Multivitamin 1 Each Tablet, 1 EACH PO HS, (Reported) Rosuvastatin Calcium 10 Mg Tablet, 10 MG PO HS, (Reported) Sodium Chloride 30 Ml [place], 1 SPRAY NSEACH PRN PRN for DRY NOSE, (Reported) Patient Home Medication List Home Medication List Reviewed: Yes (CATARINO CAMPBELL) Review of Systems Review of Systems Constitutional: no symptoms reported; No chills, No diaphoresis, No dizziness, No fever EENTM: No Symptoms Reported Respiratory: No Symptoms Reported; Denies Cough, Denies Shortness of Air, Denies Wheezing Cardiovascular: See HPI, Chest Pain; Denies Edema, Denies Irregular Heart Rate, Denies Lightheadedness, Denies Palpitations, Denies Syncope Gastrointestinal: See HPI; Denies Abdominal Pain, Denies Diarrhea; Nausea; Denies Vomiting Genitourinary: No Symptoms Reported Musculoskeletal: no symptoms reported; No back pain Skin: no symptoms reported Psychiatric/Neurological: No Symptoms Reported Endocrine: No Symptoms Reported Hematologic/Lymphatic: No Symptoms Reported (SHREYA RODRIGUEZ DO) Past Fwdtecv-Zdtmjk-Zdrqcq Hx Past Med/Social Hx: Reviewed and Corrections made (SHREYA RODRIGUEZ DO) Patient Social History Alcohol Use: Denies Use Recreational Drug Use: No Smoking Status: Never a Smoker 2nd Hand Smoke Exposure: Yes Recent Foreign Travel: No Contact w/Someone Who Travel: No Recent Infectious Disease Expo: No Recent Hopitalizations: No Physical Abuse: No Sexual Abuse: No Mistreated: No Fear: No (SHREYA RODRIGUEZ DO) Immunizations Up To Date Tetanus Booster (TDap): Unknown (SHREYA RODRIGUEZ DO) Seasonal Allergies Seasonal Allergies: Yes (SHREYA RODRIGUEZ DO) Past Medical History Surgeries: Yes (CYSTOSCOPIES;KIDNEY STONE BASKET REMOVAL X 2; TOE SURGERY X 2; X 2) Cardiac ([facility]), Section, Coronary Stent (X 1 --2012), Orthopedic, Renal Respiratory: No Currently Using CPAP: No Currently Using BIPAP: No Cardiac: Yes (CARDIAC CATHS-STENT X 1 IN 2011;CATH 02/01/29-PATENT STENT/MILD CAD/NO INTE) Coronary Artery Disease, High Cholesterol Neurological: Yes Headaches /Migraines : No 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 Disorders: No DIRECTOR PROPERTY History: Menopausal Genitourinary: Yes (KDINEY STONE BASKET REMOVAL X 2; CYSTOSCOPIES) Kidney Stones Gastrointestinal: No Musculoskeletal: Yes (TOE SURGERY X 2) Arthritis Endocrine: No HEENT: No Cancer: No Psychosocial: No Integumentary: No Blood Disorders: No (SHREYA RODRIGUEZ DO) Family Medical History PSH: -TOE SURGERY X 2 -KIDNEY STONE BASKET REMOVAL X 2 -CYSTOSCOPIES - X 2 -CARDIAC CATH 2011--STENT X 1 TO LAD -CARDIAC CATH 02/01/19 FOR ABNORMAL STRESS TEST--PATENT STENT, MILD CAD. NO INTERVENTION DONE AT THAT TIME. (SHREYA RODRIGUEZ DO) Physical Exam Vital Signs Vital Signs - First Documented (CATARINO CAMPBELL) Vital Signs Capillary Refill : Less Than 3 Seconds (SHREYA RODRIGUEZ DO) Height, Weight, BMI Height: 5'1.00" Weight: 165lbs. 0.0oz. 74.091067qm; 30.00 BMI Method:Stated General Appearance: No Apparent Distress, WD/WN Neck: Full Range of Motion, Normal Inspection, Non Tender, Supple; No Carotid Bruit, No JVD Respiratory: Chest Non Tender, Normal Breath Sounds, No Accessory Muscle Use, No Respiratory Distress Cardiovascular: Regular Rate, Rhythm, No Edema, No JVD, No Murmur, Normal Pe ripheral Pulses Gastrointestinal: Normal Bowel Sounds, No Organomegaly, No Pulsatile Mass, Non Tender, Soft Extremity: Normal Capillary Refill, Normal Inspection, Normal Range of Motion, Non Tender, No Calf Tenderness, No Pedal Edema Neurologic/Psychiatric: Alert, Oriented x3, No Motor/Sensory Deficits, Normal Mood/Affect, portfolio director II-XII Norm as Tested Skin: Normal Color, Warm/Dry; No Rash (SHREYA RODRIGUEZ DO) Progress/Results/Core Measures Results/Orders Lab Results Laboratory Tests Test 04/29/19 03:45 04/29/19 06:50 Range/Units White Blood Count 10.1 4.3-11.0 10^3/uL Red Blood Count 5.09 4.35-5.85 10^6/uL Hemoglobin 14.5 11.5-16.0 G/DL Hematocrit 43 35-52 % Mean Corpuscular Volume 85 80-99 FL Mean Corpuscular Hemoglobin 29 25-34 PG Mean Corpuscular Hemoglobin Concent 34 32-36 G/DL Red Cell Distribution Width 14.9 H 10.0-14.5 % Platelet Count 256 130-400 10^3/uL Mean Platelet Volume 11.5 H 7.4-10.4 FL Neutrophils (%) (Auto) 68 42-75 % Lymphocytes (%) (Auto) 18 12-44 % Monocytes (%) (Auto) 8 0-12 % Eosinophils (%) (Auto) 6 0-10 % Basophils (%) (Auto) 1 0-10 % Neutrophils # (Auto) 6.9 1.8-7.8 X 10^3 Lymphocytes # (Auto) 1.8 1.0-4.0 X 10^3 Monocytes # (Auto) 0.8 0.0-1.0 X 10^3 Eosinophils # (Auto) 0.6 H 0.0-0.3 10^3/uL Basophils # (Auto) 0.1 0.0-0.1 10^3/uL Prothrombin Time 12.9 12.2-14.7 SEC INR Comment 0.9 0.8-1.4 Activated Partial Thromboplast Time 42 H 24-35 SEC Sodium Level 142 135-145 MMOL/L Potassium Level 3.9 3.6-5.0 MMOL/L Chloride Level 106 98-107 MMOL/L Carbon Dioxide Level 23 21-32 MMOL/L Anion Gap 13 5-14 MMOL/L Blood Urea Nitrogen 13 7-18 MG/DL Creatinine 0.77 0.60-1.30 MG/DL Estimat Glomerular Filtration Rate > 60 BUN/Creatinine Ratio 17 Glucose Level 108 H 70-105 MG/DL Calcium Level 9.9 8.5-10.1 MG/DL Corrected Calcium 9.6 8.5-10.1 MG/DL Magnesium Level 2.0 1.6-2.4 MG/DL Total Bilirubin 0.3 0.1-1.0 MG/DL Aspartate Amino Transf (AST/SGOT) 24 5-34 U/L Alanine Aminotransferase (ALT/SGPT) 27 0-55 U/L Alkaline Phosphatase 63 40-136 U/L Total Creatine Kinase 89 29-168 U/L Creatine Kinase MB 1.5 <6.6 NG/ML Myoglobin 31.4 10.0-92.0 NG/ML Troponin I < 0.028 < 0.028 <0.028 NG/ML B-Type Natriuretic Peptide 25.3 <100.0 PG/ML Total Protein 7.6 6.4-8.2 GM/DL Albumin 4.4 3.2-4.5 GM/DL Amylase Level 91 25-125 U/L Lipase 70 8-78 U/L (CATARINO CAMPBELL) My Orders Orders - CATARINO CAMPBELL Troponin I (04/29/19 07:00) (CATARINO CAMPBELL) Medications Given in ED Current Medications Medications Dose Ordered Sig/Laurel Route Start Time Stop Time Status Last Admin Dose Admin Aspirin 162 mg ONCE ONCE PO 04/29/19 04:00 04/29/19 04:01 DC 04/29/19 04:00 162 MG Iohexol 150 ml ONCE ONCE IV 04/29/19 05:45 04/29/19 05:46 DC 04/29/19 05:37 125 ML Nitroglycerin 0.4 mg UD PRN SL 04/29/19 04:00 04/29/19 04:00 0.4 MG Sodium Chloride 100 ml ONCE ONCE IV 04/29/19 05:45 04/29/19 05:46 DC 04/29/19 05:37 80 ML (CATARINO CAMPBELL) Vital Signs/I&O 04/29/19 04/29/19 04/29/19 03:41 03:41 03:41 Temp 36.3 Pulse 77 Resp 16 B/P (MAP) 147/77 (100) Pulse Ox 99 99 O2 Delivery Room Air Room Air Room Air (CATARINO CAMPBELL) Blood Pressure Mean: 100 Progress Progress Note : Progress Note GIVEN ADDITIONAL ASPIRIN GIVEN NTG X 1 WITH COMPLETE RELIEF OF PAIN RECOMMENDED ADMIT DUE TO HER HISTORY AND HER SYMPTOMS PT DOES NOT WANT TO STAY, SHE STATES SHE "FEELS GREAT" NOW, SINCE SHE HAD NTG. PT IS AGREEABLE TO DOING 3 HOUR RULE OUT REPEAT TROPONIN AND EKG 0600--CARE TURNED OVER TO DR. CAMPBELL (SHREYA RODRIGUEZ DO) Progress Note : Progress Note Assumed care of the patient at shift change. Review of the recent ca theterization with only mild coronary disease. She does seem to have anginal symptoms with relief by nitroglycerin. She is still expressing no symptoms at this time. She does not want to stay in the hospital. 3 hour repeat troponin is still negative. 1. Patent stent in the proximal LAD with 40 percent stenosis proximal to the stent, otherwise mild coronary artery disease 2. 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 Normal left ventricular end-diastolic pressure (CATARINO CAMPBELL) Initial ECG Impression Date: Apr 29, 2019 Initial ECG Impression Time: 03:41 Initial ECG Rate: 86 Initial ECG Rhythm: Normal Sinus Initial ECG Comparisson: Unchanged (SHREYA RODRIGUEZ DO) Diagnostic Imaging Comments CXR--?RLL INFILTRATE ? , PENDING RADIOLOGIST REVIEW CT CHEST ANGIOGRAM--NO ACUTE PROCESS, PER [facility] VIA FAX AT 4230 Reviewed: Reviewed by Me (SHREYA RODRIGUEZ DO) Diagonstic Imaging: Xray, CT Plain Films/CT/US/NM/MRI: chest (CATARINO CAMPBELL) Consults : Consulting Physician: SHAGGY PLASENCIA MD Consults Notes 0730: Discussed the EKG, delta troponin since, labs, CT, chest x-ray and workup. Patient is still pain free. Dr. Plasencia agrees at this time that since she just had a catheter recently she would not need any further in-hospital management but rather she would be good to go home. She should follow-up in the clinic next week. (CATARINO CAMPBELL) Departure Impression Primary Impression: Chest pain Qualified Codes: I20.8 - Other forms of angina pectoris Disposition: 01 HOME, SELF-CARE Condition: Stable Departure-Patient Inst. Decision time for Depature: 07:31 (CATARINO CAMPBELL) Referrals: SHAGGY PLASENCIA MD, JACQUELINE S DO (PCP/Family) Primary Care Physician Patient Instructions: Angina (DC) Add. Discharge Instructions: Plan to follow up with Dr. Plasencia next week. Call his clinic before noon today to make an appointment. Return to the ER if you are having persistent chest pain despite nitroglycerin. All discharge instructions reviewed with patient and/or family. Voiced understanding. Work/School Note: Work Release Form Date Seen in the Emergency Department: Apr 29, 2019 Return to Work: May 01, 2019 Restrictions: No Restrictions SHREYA RODRIGUEZ DO Apr 29, 2019 04:13 CATARINO CAMPBELL Apr 29, 2019 07:27
[2019-04-29 04:20] LABS: INR 0.9 (0.8-1.4); PROTHROMBIN TIME PATIENT 12.9 SEC (12.2-14.7)
[2019-04-29 04:28] LABS: ALANINE AMINOTRANSFERASE 27 U/L (0-55); ALBUMIN 4.4 GM/DL (3.2-4.5); ALKALINE PHOSPHATASE 63 U/L (40-136); AMYLASE 91 U/L (25-125); BILIRUBIN,TOTAL 0.3 MG/DL (0.1-1.0); BUN/CREATININE RATIO 17; CALCIUM 9.9 MG/DL (8.5-10.1); CARBON DIOXIDE 23 MMOL/L (21-32); CHLORIDE 106 MMOL/L (98-107); CREATINE KINASE 89 U/L (29-168); CREATININE SERUM 0.77 MG/DL (0.60-1.30); GFR ESTIMATED > 60; GLUCOSE 108 MG/DL (70-105); LIPASE 70 U/L (8-78); POTASSIUM 3.9 MMOL/L (3.6-5.0); SODIUM 142 MMOL/L (135-145); TOTAL PROTEIN 7.6 GM/DL (6.4-8.2)
[2019-04-29 04:35] LABS: CREATINE KINASE MB 1.5 NG/ML (<6.6)
[2019-04-29] MEDS ORDERED: HOLD METFORMIN - RECEIVED CONTRAST 20 ML VIAL IV SCH (05:45)
[2019-04-29] MEDS ORDERED: IOHEXOL 350 MG/ML 150 ML (OMNIPAQUE 350) VIAL IV ONE (05:45)
[2019-04-29] MEDS ORDERED: NS 100 ML (IVPB) BAG IV ONE (05:45)
--- NOTE | 2019-04-29 06:19 | Diagnostic Imaging Report ---
EXAMINATION: CT angiography of the chest. TECHNIQUE: Contrast enhanced thin section helical images were obtained through the chest with intravenous contrast timed for the optimal opacification of the arterial structures per CTA protocol. Post-processing, reconstructions and interpretation of angiographic images of the vessels was performed. 3D MIP reconstructions were performed and reviewed. All CT scans use one or more of the following dose optimizing techniques: automated exposure control, MA and/or KvP adjustment based on a patient size and exam type, or iterative reconstruction. HISTORY: Chest pain COMPARISON: None available. FINDINGS: There is no pulmonary embolism. Aorta is normal in caliber. There is no edema or pneumonia. No pleural effusion. No pneumothorax. No suspicious nodules. Heart size is normal. No pericardial effusion. There is no axillary or supraclavicular lymphadenopathy. There is no mediastinal lymphadenopathy. Limited views of the upper abdomen are unremarkable. There are no suspicious osseus lesions. IMPRESSION: 1. No pulmonary embolism, clear lungs. There is no significant disagreement with the preliminary report. Dictated by: Dictated on workstation # [id number]
--- NOTE | 2019-04-29 07:00 | Diagnostic Imaging Report ---
INDICATION: Chest pain. TIME OF EXAM: 4:21 AM Correlation is made with prior study from 02/01/2019. FINDINGS: The heart size is normal. The pulmonary vascularity is unremarkable. The lungs are clear. No infiltrate, effusion or pneumothorax is detected. IMPRESSION: No acute cardiopulmonary process is detected. Dictated by: Dictated on workstation # [id number]
[2019-04-29 07:53] VITALS: BP 130/78
== END 2019-04-29 07:40 | disposition home or self-care (01) ==
LOC: EDUNIT# 03:36 → ER 03:38
DX: R07.89 Other chest pain (principal); I25.10 Atherosclerotic heart disease of native coronary artery without angina pectoris; E78.00 Pure hypercholesterolemia, unspecified; Z95.5 Presence of coronary angioplasty implant and graft; Z88.0 Allergy status to penicillin; Z88.1 Allergy status to other antibiotic agents; Z79.82 Long term (current) use of aspirin; Z77.22 Contact with and (suspected) exposure to environmental tobacco smoke (acute) (chronic)
CPT/HCPCS: 36415; 71045; 71275; 80053; 82150; 82550; 82553; 83690; 83735; 83874; 83880; 84484; 85025; 85610; 85730; 93005; 93041

== ENCOUNTER 2019-08-31 23:12 | Emergency (ER) | payer OTHER ==
[~2019-08-31] VITALS: Ht 154.9 cm; Wt 75.7 kg
[2019-08-31] MEDS ORDERED: NS IV 1000 ML 1,000 ML IV SCH (23:59)
[2019-09-01] MEDS ORDERED: ONDANSETRON 4 MG/2 ML (SDV) Z0FRAN IVP ONE
[2019-09-01 00:37] LABS: BASOPHILS % (AUTO) 0 % (0-10); EOSINOPHILS # (AUTO) 0.1 10^3/uL (0.0-0.3); EOSINOPHILS % (AUTO) 1 % (0-10); HEMATOCRIT 43 % (35-52); HEMOGLOBIN 14.3 G/DL (11.5-16.0); LYMPHOCYTES # (AUTO) 0.3 X 10^3 (1.0-4.0); LYMPHOCYTES % (AUTO) 2 % (12-44); MEAN CORPUSCULAR HEMOGLOBIN 29 PG (25-34); MEAN CORPUSCULAR HGB CONC 34 G/DL (32-36); MEAN CORPUSCULAR VOLUME 85 FL (80-99); MEAN PLATELET VOLUME 11.3 FL (7.4-10.4); MONOCYTES # (AUTO) 0.4 X 10^3 (0.0-1.0); MONOCYTES % (AUTO) 3 % (0-12); NEUTROPHILS # (AUTO) 11.4 X 10^3 (1.8-7.8); NEUTROPHILS % (AUTO) 93 % (42-75); PLATELET COUNT 231 10^3/uL (130-400); RED CELL DISTRIBUTION WIDTH 14.4 % (10.0-14.5); WHITE BLOOD COUNT 12.2 10^3/uL (4.3-11.0)
[2019-09-01 00:47] LABS: INR 0.9 (0.8-1.4); PROTHROMBIN TIME PATIENT 12.5 SEC (12.2-14.7)
[2019-09-01 00:56] LABS: ALANINE AMINOTRANSFERASE 29 U/L (0-55); ALBUMIN 4.2 GM/DL (3.2-4.5); ALKALINE PHOSPHATASE 76 U/L (40-136); BILIRUBIN,TOTAL 0.4 MG/DL (0.1-1.0); BUN/CREATININE RATIO 15; CALCIUM 9.2 MG/DL (8.5-10.1); CARBON DIOXIDE 24 MMOL/L (21-32); CHLORIDE 101 MMOL/L (98-107); GFR ESTIMATED > 60; GLUCOSE 126 MG/DL (70-105); POTASSIUM 3.8 MMOL/L (3.6-5.0); SODIUM 137 MMOL/L (135-145); TOTAL PROTEIN 7.7 GM/DL (6.4-8.2)
[2019-09-01 01:03] LABS: BAND NEUTROPHILS 5 %; EOSINOPHILS % (MANUAL) 2 %; LYMPHOCYTES % (MANUAL) 4 %; MONOCYTES % (MANUAL) 2 %; NEUTROPHILS % (MANUAL) 87 %
[2019-09-01] MEDS ORDERED: NS IV 500 ML 500 ML IV ONE (01:09)
[2019-09-01 01:15] LABS: BILIRUBIN,URINE NEGATIVE (NEGATIVE); CLARITY,URINE CLEAR; COLOR,URINE YELLOW; GLUCOSE, URINE (UA) NEGATIVE (NEGATIVE); KETONES,URINE NEGATIVE (NEGATIVE); LEUKOCYTE ESTERASE ,URINE NEGATIVE (NEGATIVE); NITRITE,URINE NEGATIVE (NEGATIVE); PROTEIN,URINE NEGATIVE (NEGATIVE)
[2019-09-01] MEDS ORDERED: PROMETHAZINE INJ 25 MG/ML (PHENERGAN) AMP IVP ONE (01:15)
[2019-09-01 01:22] LABS: BACTERIA,URINE NEGATIVE /HPF; SQUAMOUS EPITHELIAL CELL,UR RARE /HPF; WBC,URINE RARE /HPF
--- NOTE | 2019-09-01 01:23 | ED GI ---
General Chief Complaint: Abdominal/GI Problems Stated Complaint: FEVER,VOMITING Source of Information: Patient Exam Limitations: No Limitations History of Present Illness Date Seen by Provider: Sep 01, 2019 Time Seen by Provider: 23:45 Initial Comments This 63-year-old woman presents to the emergency room with nausea and vomiting. She noted hematuria and dysuria yesterday. She was passing clots in her urine and had intense pain during urination. She followed up with her primary care provider today and was thought to have urinary tract infection. She was started on Bactrim. She took her first dose of Bactrim around 16:00 and then began vomiting. She developed fever of 103.5 at 19:00. She believes her fever and vomiting may be a reaction to the Bactrim. She is afebrile on presentation. She reports some flank pain yesterday but that seems to have resolved. Allergies and Home Medications Allergies Coded Allergies: Penicillins (Verified Allergy, Unknown, 08/25/06) ciprofloxacin (Verified Allergy, Unknown, 08/25/06) Home Medications Aspirin 81 Mg Tablet.dr, 81 MG PO HS, (Reported) Calcium Carbonate 200 Mg Tab.chew, 400 MG PO PRN PRN for INDIGESTION, (Reported) Cholecalciferol (Vitamin D3) 2,000 Unit Capsule, 2,000 UNIT PO HS, (Reported) Ketorolac Tromethamine 10 Mg Tablet, 20 MG PO PRN PRN for MIGRAINE, (Reported) Multivitamin 1 Each Tablet, 1 EACH PO HS, (Reported) Ondansetron 4 Mg Tab.rapdis, 4 MG SL Q4H PRN for NAUSEA/VOMITING Prescribed by: ROMAIN BENTLEY on 09/01/19 0229 Rosuvastatin Calcium 10 Mg Tablet, 10 MG PO HS, (Reported) Sodium Chloride 30 Ml [place], 1 SPRAY [place]SE[place] PRN PRN for DRY NOSE, (Reported) Patient Home Medication List Home Medication List Reviewed: Yes Review of Systems Review of Systems Constitutional: see HPI EENTM: No Symptoms Reported Respiratory: No Symptoms Reported Cardiovascular: No Symptoms Reported Gastrointestinal: See HPI Genitourinary: See HPI Musculoskeletal: no symptoms reported Skin: no symptoms reported Psychiatric/Neurological: No Symptoms Reported Endocrine: No Symptoms Reported Hematologic/Lymphatic: No Symptoms Reported Past Jblttta-Juahms-Neyuoj Hx Past Med/Social Hx: Reviewed Nursing Past Med/Soc Hx Patient Social History 2nd Hand Smoke Exposure: Yes Recent Foreign Travel: No Contact w/Someone Who Travel: No Recent Hopitalizations: No Immunizations Up To Date Tetanus Booster (TDap): Unknown Seasonal Allergies Seasonal Allergies: Yes Past Medical History Surgeries: Yes (CYSTOSCOPIES;KIDNEY STONE BASKET REMOVAL X 2; TOE SURGERY X 2; X 2) Cardiac, Section, Coronary Stent, Orthopedic, Renal Respiratory: No Currently Using CPAP: No Currently Using BIPAP: No Cardiac: Yes (CARDIAC CATHS-STENT X 1 IN 2011;CATH 02/01/29-PATENT STENT/MILD CAD/NO INTE) Coronary Artery Disease, High Cholesterol Neurological: Yes Headaches /Migraines 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 Disorders: No [employer]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 NO INTERVENTION DONE AT THAT TIME. Physical Exam Vital Signs Vital Signs - First Documented 08/31/19 23:57 Temp 37.5 Pulse 124 Resp 22 B/P (MAP) 147/79 (101) Pulse Ox 99 O2 Delivery Room Air Capillary Refill : Height/Weight/BMI Height: 5'1.00" Weight: 165lbs. 0.0oz. 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, no motor/sensory deficits, alert, normal mood/affect, oriented x 3 Skin: normal color, warm/dry Focused Exam Lactate Level 09/01/19 00:25: Lactic Acid Level 1.60 Lactic Acid Level Laboratory Tests Test 09/01/19 00:25 Lactic Acid Level 1.60 MMOL/L (0.50-2.00) Progress/Results/Core Measures Results/Orders Lab Results Laboratory Tests Test 08/31/19 00:25 08/31/19 01:08 09/01/19 00:25 Range/Units White Blood Count 12.2 H 4.3-11.0 10^3/uL Red Blood Count 4.99 4.35-5.85 10^6/uL Hemoglobin 14.3 11.5-16.0 G/DL Hematocrit 43 35-52 % Mean Corpuscular Volume 85 80-99 FL Mean Corpuscular Hemoglobin 29 25-34 PG Mean Corpuscular Hemoglobin Concent 34 32-36 G/DL Red Cell Distribution Width 14.4 10.0-14.5 % Platelet Count 231 130-400 10^3/uL Mean Platelet Volume 11.3 H 7.4-10.4 FL Neutrophils (%) (Auto) 93 H 42-75 % Lymphocytes (%) (Auto) 2 L 12-44 % Monocytes (%) (Auto) 3 0-12 % Eosinophils (%) (Auto) 1 0-10 % Basophils (%) (Auto) 0 0-10 % Neutrophils # (Auto) 11.4 H 1.8-7.8 X 10^3 Lymphocytes # (Auto) 0.3 L 1.0-4.0 X 10^3 Monocytes # (Auto) 0.4 0.0-1.0 X 10^3 Eosinophils # (Auto) 0.1 0.0-0.3 10^3/uL Basophils # (Auto) 0.0 0.0-0.1 10^3/uL Neutrophils % (Manual) 87 % Lymphocytes % (Manual) 4 % Monocytes % (Manual) 2 % Eosinophils % (Manual) 2 % Band Neutrophils 5 % Sodium Level 137 135-145 MMOL/L Potassium Level 3.8 3.6-5.0 MMOL/L Chloride Level 101 98-107 MMOL/L Carbon Dioxide Level 24 21-32 MMOL/L Anion Gap 12 5-14 MMOL/L Blood Urea Nitrogen 12 7-18 MG/DL Creatinine 0.80 0.60-1.30 MG/DL Estimat Glomerular Filtration Rate > 60 BUN/Creatinine Ratio 15 Glucose Level 126 H 70-105 MG/DL Calcium Level 9.2 8.5-10.1 MG/DL Corrected Calcium 9.0 8.5-10.1 MG/DL Total Bilirubin 0.4 0.1-1.0 MG/DL Aspartate Amino Transf (AST/SGOT) 34 5-34 U/L Alanine Aminotransferase (ALT/SGPT) 29 0-55 U/L Alkaline Phosphatase 76 40-136 U/L C-Reactive Protein High Sensitivity 1.70 H 0.00-0.50 MG/DL Total Protein 7.7 6.4-8.2 GM/DL Albumin 4.2 3.2-4.5 GM/DL Urine Color YELLOW Urine Clarity CLEAR Urine pH 7.0 5-9 Urine Specific [place] 1.015 L 1.016-1.022 Urine Protein NEGATIVE NEGATIVE Urine Glucose (UA) NEGATIVE NEGATIVE Urine Ketones NEGATIVE NEGATIVE Urine Nitrite NEGATIVE NEGATIVE Urine Bilirubin NEGATIVE NEGATIVE Urine Urobilinogen 0.2 < = 1.0 MG/DL Urine Leukocyte Esterase NEGATIVE NEGATIVE Urine RBC (Auto) 2+ H NEGATIVE Urine RBC 2-5 H /HPF Urine WBC RARE /HPF Urine Squamous Epithelial Cells RARE /HPF Urine Crystals NONE /LPF Urine Bacteria NEGATIVE /HPF Urine Casts NONE /LPF Urine Mucus NEGATIVE /LPF Urine Culture Indicated NO Prothrombin Time 12.5 12.2-14.7 SEC INR Comment 0.9 0.8-1.4 Activated Partial Thromboplast Time 34 24-35 SEC Lactic Acid Level 1.60 0.50-2.00 MMOL/L My Orders Orders - ROMAIN BERNARD MD Cbc With Automated Diff (08/31/19 23:59) Comprehensive Metabolic Panel (08/31/19 23:59) Hs C Reactive Protein (08/31/19 23:59) Ua Culture If Indicated (08/31/19 23:59) Ed Iv/Invasive Line Start (08/31/19 23:59) Ns Iv 1000 Ml (Sodium Chloride 0.9%) (08/31/19 23:59) Ondansetron Injection (Zofran Injectio (09/01/19 00:00) Blood Culture (09/01/19 00:07) Protime With Inr (09/01/19 00:07) Partial Thromboplastin Time (09/01/19 00:07) Vital Signs Adult Sepsis Patie Q15M (09/01/19 00:07) Remove Rings In Anticipation O (09/01/19 00:07) Lactic Acid Analyzer (09/01/19 00:07) Manual Differential (08/31/19 00:25) Promethazine Injection (Phenergan Injec (09/01/19 01:15) Ns Iv 500 Ml (Sodium Chloride 0.9%) (09/01/19 01:09) Ct Abd/Pelvis Wo(Kidney Stone) (09/01/19 01:40) Urine Culture (09/01/19 02:20) Medications Given in ED Current Medications Medications Dose Ordered Sig/[place] Route Start Time Stop Time Status Last Admin Dose Admin Ondansetron HCl 8 mg ONCE ONCE IVP 09/01/19 00:00 09/01/19 00:01 DC 09/01/19 00:14 8 MG Promethazine HCl 12.5 mg ONCE ONCE IVP 09/01/19 01:15 09/01/19 01:16 DC 09/01/19 01:17 12.5 MG Sodium Chloride 500 ml @ 0 mls/hr Q0M ONCE IV 09/01/19 01:09 09/01/19 01:11 DC 09/01/19 01:17 999 MLS/HR Vital Signs/I&O 08/31/19 09/01/19 09/01/19 23:57 02:07 02:07 Temp 37.5 37.1 37.1 Pulse 124 101 Resp 22 18 B/P (MAP) 147/79 (101) 119/75 Pulse Ox 99 O2 Delivery Room Air Progress Progress Note #1: Time: 02:18 Progress Note Patient was treated with Zofran and IV fluids. She had some residual nausea which was treated with Phenergan. Labs were relatively unremarkable. There was some blood noted in her urine. CT for stone search was ordered. Progress Note #2: Time: 02:[address] was unremarkable for acute pathology to explain her pain. Urine did not show any evidence of urinary tract infection. A repeat culture will be obtained to be certain. In the meantime, he shouldn't was advised to hold the Bactrim as a possible cause of her symptoms. She has been afebrile throughout her ER stay. Departure Impression Primary Impression: Nausea and vomiting Qualified Codes: R11.2 - Nausea with vomiting, unspecified Disposition: 01 HOME, SELF-CARE Condition: Improved Departure-Patient Inst. Decision time for Depature: 02:27 Referrals: ELLI ALEXIS DO (PCP/Family) Primary Care Physician Patient Instructions: Nausea and Vomiting, Adult Add. Discharge Instructions: The exact cause of your symptoms is uncertain but you may have had a kidney stone that passed. Your urine does not show significant evidence of infection in the ER. Refrain from using Bactrim until urine culture results are known. Use Zofran as prescribed for nausea and vomiting. Return to care if you have worsening symptoms. Start with a clear liquid diet and gradually advance your diet with small quantities of bland food as tolerated. All discharge instructions reviewed with patient and/or family. Voiced understanding. Scripts Ondansetron (Ondansetron Odt) 4 Mg Tab.rapdis 4 MG SL Q4H PRN for NAUSEA/VOMITING, #10 TAB Prov: ROMAIN BERNARD MD 09/01/19 Copy Copies To 1: ELLI ALEXIS JOSHUA T MD Sep 01, 2019 01:23
[2019-09-01] MEDS ORDERED: ONDA4TAB11 SL (02:29)
[2019-09-01 02:36] VITALS: BP 119/75
--- NOTE | 2019-09-01 05:45 | Diagnostic Imaging Report ---
PROCEDURE: CT urinary tract, rule out kidney stone. TECHNIQUE: Multiple contiguous axial images were obtained through the abdomen and pelvis without the use of intravenous contrast. Auto Exposure Controls were utilized during the CT exam to meet ALARA standards for radiation dose reduction. INDICATION: Fever, nausea, and vomiting The previous CT abdomen/pelvis exam of 05/13/2014 noted partial obstruction of the left collecting system due to a calculus near the ureterovesical junction. The study is less than optimal due to motion artifact. On this exam, there is no evidence for nephrolithiasis or urolithiasis and the kidneys do not appear to be obstructed. The appendix is not well-visualized but there are no indirect signs of acute appendicitis. There is diverticulosis of the sigmoid and descending colon but there is no sign of diverticulitis. The urinary bladder and uterus are grossly unremarkable. The liver, spleen, pancreas, gallbladder, adrenals, aorta and inferior vena cava show no sign of an acute abnormality. The stomach is not well-distended and consequently difficult to assess. There are mild chronic changes involving the lung bases. The bone windows show no sign of a fracture or of a destructive lesion. There is fairly severe degenerative disc and bony disease at L4-L5 and L5-S1. IMPRESSION: There is no evidence for an acute abnormality of the abdomen or pelvis on this suboptimal exam. In particular, there is no sign of nephrolithiasis or urolithiasis and there is no indirect evidence for appendicitis. Dictated by: Dictated on workstation # [id number]
== END 2019-09-01 02:36 | disposition home or self-care (01) ==
LOC: EDUNIT# 23:12 → ER 23:17
DX: R11.2 Nausea with vomiting, unspecified (principal); I25.10 Atherosclerotic heart disease of native coronary artery without angina pectoris; E78.00 Pure hypercholesterolemia, unspecified; G43.909 Migraine, unspecified, not intractable, without status migrainosus; Z88.0 Allergy status to penicillin; Z88.1 Allergy status to other antibiotic agents; Z79.82 Long term (current) use of aspirin; Z77.22 Contact with and (suspected) exposure to environmental tobacco smoke (acute) (chronic); Z95.5 Presence of coronary angioplasty implant and graft
CPT/HCPCS: 36415; 74176; 80053; 81000; 83605; 85007; 85027; 85610; 85730; 86141; 87040; 87088

== ENCOUNTER → 2020-03-28 | Outpatient (CLI) | payer OTHER ==
[~2020-03-28] MED LIST changes: +ALPR.25T PO; -ALPR0.254 PO; +ASPI-1238 PO; -ASPI-983 PO; +MULT-567 PO; -MULT1TAB69 PO; +ONDA4TAB11 SL
--- NOTE | 2020-03-28 12:05 | Diagnostic Imaging Report ---
EXAM: CHEST PA/LAT (2 VIEW) INDICATION: Chronic cough. COMPARISON: CTA chest 04/29/2019. FINDINGS: Normal heart size and central pulmonary vascularity. No focal pulmonary opacity, pleural effusion or pneumothorax. No acute osseous findings. IMPRESSION: No acute cardiopulmonary findings. Dictated by: Dictated on workstation # [id number]
== END ==
LOC: RAD 11:36
PROVIDERS: ATTEND Nurse Practitioner Family
DX: R05 Cough (principal); R06.00 Dyspnea, unspecified
CPT/HCPCS: 71046

== ENCOUNTER → 2020-10-03 | Outpatient (CLI) | payer MEDICARE, OTHER ==
--- NOTE | 2020-10-03 18:22 | Diagnostic Imaging Report ---
INDICATION: Right hand pain. COMPARISON: None. FINDINGS: Three views of the right hand demonstrate minimal degenerative changes, primarily involving the first carpometacarpal-phalangeal joint. There is no fracture, dislocation, or bony erosion. No unexpected radiopaque foreign body. IMPRESSION: Minimal degenerative changes of the first carpometacarpal-phalangeal joint. Dictated by: Dictated on workstation # [id number]
== END ==
LOC: RAD 13:32
PROVIDERS: ATTEND Family Medicine
DX: M79.641 Pain in right hand (principal); M79.89 Other specified soft tissue disorders
CPT/HCPCS: 73130

== ENCOUNTER → 2021-01-27 | Outpatient (CLI) | payer MEDICARE, OTHER ==
[~2021-01-27] MED LIST changes: +CATHETER FLUSH 10 ML SYR IV PRN
[2021-01-27 09:18] VITALS: BP 146/74
--- NOTE | 2021-01-27 11:29 | Cardiology Stress Test Report ---
Stress Test Report Date of Procedure/Referring: Date of Procedure: Jan 27, 2021 Madeline Pollard Admitting Physician Virginia Esparza DO Indications: CAD Baseline Heart Rate: 77 Baseline Blood Pressure: Blood Pressure Systolic: 146 Blood Pressure Diastolic: 74 Vital Signs Date Time Temp Pulse Resp B/P (MAP) Pulse Ox O2 Delivery O2 Flow Rate FiO2 01/27/21 09:18 77 146/74 (98) 96 Baseline Vital Signs Vital Signs Date Time Temp Pulse Resp B/P (MAP) Pulse Ox O2 Delivery O2 Flow Rate FiO2 01/27/21 09:18 77 146/74 (98) 96 Baseline EKG: Baseline EKG: NSR Summary: After explaining the procedure and details to the patient, she signed the consent and was brought to the stress nuclear laboratory. Patient exercised on standard Khanh protocol, EKG, heart rate and blood pressure were monitored continuously, resting and stress doses of radio tracer were injected, imaging was acquired and reviewed in the short axis, horizontal long axis and vertical long axis views Patient was able to exercise for a total of 4 minutes on Khanh protocol, METs 5.8 Maximum heart rate 149 Maximum blood pressure 219/82 Stress EKG, Minimal nondiagnostic changes Recovery EKG, Return to baseline TID: 0.95 SSS: 2 SDS: 2 EF: 75 Conclusion: 1. Fair exercise tolerance for a total of 4 minutes on standard Khanh protocol, 5.8 METS achieving 96% of maximal expected heart rate 2. Appropriate heart rate response to exercise with hypertensive response to exercise with peak blood pressure 219/82 return to baseline during recovery 3. Nondiagnostic EKG changes with exercise return to baseline during recovery 4. Breast attenuation with no significant ischemia or infarction on SPECT images 5. Normal left ventricular size, EF 75% SHAGGY COLMENARES MD Jan 27, 2021 11:29
== END ==
LOC: CARD 07:45
PROVIDERS: ATTEND Physician Assistant
DX: I25.10 Atherosclerotic heart disease of native coronary artery without angina pectoris (principal)
CPT/HCPCS: 78452; 93017; A9502

== ENCOUNTER 2021-08-13 12:49 | Outpatient (CLI) | payer MEDICARE, OTHER ==
[~2021-08-13] VITALS: Ht 154.9 cm; Wt 80.7 kg
[~2021-08-13 12:49] MED LIST changes: -CATHETER FLUSH 10 ML SYR IV PRN
[2021-08-13] MEDS ORDERED: MTP25TSR PO (13:31)
== END 2021-08-13 13:33 | disposition home or self-care (01) ==
LOC: PREOP 12:49
PROVIDERS: ATTEND Surgery
DX: Z01.818 Encounter for other preprocedural examination (principal)

== ENCOUNTER 2021-08-26 12:46 | Day surgery (SDC) | payer MEDICARE, OTHER ==
[~2021-08-26] VITALS: Ht 154.9 cm; Wt 80.7 kg
[~2021-08-26 12:46] MED LIST changes: +MTP25TSR PO
[2021-08-26] MEDS ORDERED: LACTATED RINGERS 1,000 ML IV ONE (12:52)
[2021-08-26] MEDS ORDERED: LACTATED RINGERS 1,000 ML IV STA (12:53)
[2021-08-26] MEDS ORDERED: HURRICAINE EXT TUBE (BENZOCAINE) XX PRN (13:00)
[2021-08-26 13:05] VITALS: BP 149/79
--- NOTE | 2021-08-26 13:58 | Progress Note-Pre Operative ---
Pre-Operative Progress Note H&P Reviewed The H&P was reviewed, patient examined and no changes noted. Date Seen by Provider: August 26, 2021 Time Seen by Provider: 13:58 Date H&P Reviewed: August 26, 2021 Time H&P Reviewed: 13:58 Pre-Operative Diagnosis: chronic gastritis/gerd SHERRI WHEAT DO August 26, 2021 13:58
[2021-08-26] MEDS ORDERED: proPOfol 200 MG/20 ML (DIPRIVAN) VIAL IV ONE (14:08)
[2021-08-26] MEDS ORDERED: MIDAZOLAM 2 MG/2 ML (VERSED) VIAL ONE (14:08)
[2021-08-26] MEDS ORDERED: PANT40TA2 PO (14:17)
--- NOTE | 2021-08-26 14:18 | Discharge Inst-Simple/Standard ---
Discharge Inst-Standard Discharge Medications New, Converted or Re-Newed RX: Transmitted to Pharmacy Patient Instructions/Follow Up Plan of Care/Instructions/FU: 2 weeks Alice Activity as Tolerated: Yes Discharge Diet: Regular Diet SHERRI WHEAT DO August 26, 2021 14:18
[2021-08-26 14:22] VITALS: BP 127/57
[2021-08-26 14:27] VITALS: BP 126/63
[2021-08-26 14:34] VITALS: BP 129/67
--- NOTE | 2021-08-26 14:39 | Anesthesia-General Post-Op ---
MAC Patient Condition Mental Status/LOC: Same as Preop Cardiovascular: Satisfactory Nausea/Vomiting: Absent Respiratory: Satisfactory Pain: Controlled Complications: Absent Post Op Complications Complications None Follow Up Care/Instructions Patient Instructions None needed. Anesthesiology Discharge Order Discharge Order Patient is doing well, no complaints, stable vital signs, no apparent adverse anesthesia problems. No complications reported per nursing. DERICK PINEDA CRNA August 26, 2021 14:39
[2021-08-26 14:53] VITALS: BP 143/76
--- NOTE | 2021-08-26 22:35 | OPERATIVE REPORT ---
DATE OF SERVICE: 08/26/2021 PREOPERATIVE DIAGNOSIS: Chronic gastritis, gastroesophageal reflux disease. POSTOPERATIVE DIAGNOSIS: Gastritis. PROCEDURE: EGD with biopsy. SURGEON: Sherri Jenkins DO ANESTHESIA: Per FACE MAN. ESTIMATED BLOOD LOSS: None. COMPLICATIONS: None. INDICATIONS: The patient is a 65-year-old female with chronic gastritis symptoms. She understands risks and benefits of procedure and wished to proceed. Consent was signed in the chart. DESCRIPTION OF PROCEDURE: The patient was taken to the endoscopy suite, placed in left lateral recumbent position. Timeout was performed. Scope was inserted in mouth, down the esophagus, stomach and into the duodenum without difficulty. No polyps, masses or ulcerations within the duodenum. Scope was slowly retracted back into the stomach where it was further insufflated. Antrum had changes of gastritis. Biopsies of the antrum were obtained. Scope was then retroflexed noting a small hiatal hernia, no other pathology. Scope was returned to its normal position, slowly withdrawn to distal esophagus. No polyps, masses or ulcerations. Biopsy of GE junction was obtained. Scope was slowly retracted back until completely removed. The patient tolerated procedure well without any complications. She was taken to recovery room in stable condition. RECOMMENDATIONS: The patient will be started on Protonix 40 mg daily. We will follow up in the office in couple of weeks to see how her symptoms are doing. Further recommendations pending biopsies. Job ID: [id number] DocumentID: [id number] Dictated Date: 08/26/2021 14:19:45 [employer] Host Date: 08/26/2021 22:35:25 Dictated By: SHERRI JENKINS DO
== END 2021-08-26 14:59 | disposition home or self-care (01) ==
LOC: ENDO 12:46
PROVIDERS: ATTEND Surgery
DX: K29.50 Unspecified chronic gastritis without bleeding (principal); K21.9 Gastro-esophageal reflux disease without esophagitis; K31.89 Other diseases of stomach and duodenum
CPT/HCPCS: 88305

== ENCOUNTER → 2022-01-07 | Outpatient (CLI) | payer MEDICARE, OTHER ==
[~2022-01-07] MED LIST changes: +NF-CRES10T PO; +PANT40TA2 PO; -ROSU10TA22 PO
== END ==
LOC: CARD 13:02
PROVIDERS: ATTEND Internal Medicine Cardiovascular Disease
DX: I11.9 Hypertensive heart disease without heart failure (principal); I25.10 Atherosclerotic heart disease of native coronary artery without angina pectoris
CPT/HCPCS: 93306

== ENCOUNTER → 2022-02-12 | Outpatient (CLI) | payer MEDICARE, OTHER ==
--- NOTE | 2022-02-12 17:28 | Diagnostic Imaging Report ---
EXAMINATION: Chest 2 view. HISTORY: Cough without fever. COMPARISON: 03/28/2020. FINDINGS: Heart size and pulmonary vasculature are normal. The lungs are clear without consolidation, pleural effusion, or pneumothorax. The osseous structures are intact. IMPRESSION: No acute radiographic abnormality in the chest. Dictated by: Dictated on workstation # [id number]
== END ==
LOC: RAD 15:06
PROVIDERS: ATTEND Nurse Practitioner Family
DX: J20.9 Acute bronchitis, unspecified (principal)
CPT/HCPCS: 71046

== ENCOUNTER → 2023-02-05 | Outpatient (CLI) | payer MEDICARE, OTHER ==
--- NOTE | 2023-02-05 18:07 | Diagnostic Imaging Report ---
INDICATION: Acute bronchitis and cough for 3 weeks. EXAMINATION: 2 view chest 02/05/2023 COMPARISON: 02/12/2022 FINDINGS: The cardiomediastinal silhouette is unremarkable. The pulmonary vasculature is within normal limits. The lungs and pleural spaces are clear. IMPRESSION: No evidence of an acute cardiopulmonary process. Dictated by: Dictated on workstation # [id number]
== END ==
LOC: RAD 13:47
PROVIDERS: ATTEND Family Medicine
DX: J20.9 Acute bronchitis, unspecified (principal)
CPT/HCPCS: 71046